=== PATIENT | male | born 1995 | race Two or more races ===

== ENCOUNTER 2024-10-04 21:02 | Emergency (ER) | payer MEDICAID, SELFPAY ==
[2024-10-04 21:21] VITALS: BP 132/80; PULSE 87; RESP 18; TEMP 36.6; O2SAT 99
[2024-10-04] MEDS: ONDANSETRON INJ 2 MG/ML INJ 2 ML 4 MG IM (21:45)
--- NOTE | 2024-10-04 21:48 | PD.EDNV ---
Nausea/Vomit./Diarrhea-RME/HPI General Chief complaint: Nausea/Vomiting/Diarrhea Stated complaint: N/V AFTER ACCENDENTAL EATING RAW CHICKEN TODAY Time Seen by Provider: 10/04/24 21:42 Arrival date/time: 10/04/24 21:02 29M with history of HTN and alcohol abuse presents to ED with non-bloody N/V after accidentally eating some raw chicken. Patient hasn't had diarrhea (yet). Limitations: no limitations Related Data Previous Rx's ?Medication ?Instructions ?Recorded sucralfate 100 mg/mL oral 10 ml PO BID #200 mL 01/16/23 suspension chlordiazepoxide HCl 25 mg capsule 25 mg PO BID PRN alcohol 10/02/23 withdrawal #14 caps ondansetron 4 mg disintegrating 4 mg PO Q8H PRN nausea and 10/02/23 tablet vomiting #30 tabs pantoprazole 40 mg tablet,delayed 40 mg PO QDAY #30 tabs 10/02/23 release ibuprofen 600 mg tablet 600 mg PO Q6H #30 tabs 10/24/23 acetaminophen 500 mg capsule 1,000 mg (2 x 500 mg) PO Q6H PRN 05/09/24 fever or pain #30 caps ibuprofen 800 mg tablet 800 mg PO TID PRN pain #30 tabs 05/09/24 lorazepam 1 mg tablet (Ativan) 1 mg PO BID PRN anxiety #20 tabs 05/09/24 pantoprazole 40 mg tablet,delayed 40 mg PO QDAY #14 tabs 07/12/24 release (Protonix) dextromethorphan-guaifenesin ER 60 1 tab PO Q12H PRN congestion/cough 08/19/24 mg-1,200 mg tab,extend #20 tabs release,12hr (Mucinex DM) dicyclomine 20 mg tablet 20 mg PO Q6HR PRN abdominal pain 08/19/24 #30 tabs fluticasone propionate 50 2 spray intranasal QDAY #16 grams 08/19/24 mcg/actuation nasal spray,suspension (Flonase Allergy Relief) ibuprofen 600 mg tablet 600 mg PO Q6H PRN pain #30 tabs 08/19/24 lactulose 20 gram/30 mL oral 20 g (30 mL) PO BID PRN 08/19/24 solution constipation #1,200 mL ondansetron 4 mg disintegrating 4 mg PO Q8H PRN nausea and 10/04/24 tablet vomiting #30 tabs Allergies Allergy/AdvReac Type Severity Reaction Status Date / Time No Known Allergies Allergy Verified 10/04/24 21:05 Review of Systems Review of Systems Systems Reviewed: All systems reviewed, normal except as documented Constitutional Constitutional: Reports system reviewed and no additional complaints, except as documented, Denies fever(s) and Denies headache(s) ENT Ears, Nose, Mouth, and Throat: Denies disequilibrium and Denies headache(s) Cardiovascular Cardiovascular: Reports system reviewed and no additional complaints, except as documented, Denies chest pain and Denies dyspnea Respiratory Respiratory: Reports system reviewed and no additional complaints, except as documented, Denies cough and Denies dyspnea Gastrointestinal Gastrointestinal: Reports system reviewed and no additional complaints, except as documented, Reports as per HPI, Denies abdominal pain, Reports nausea and Reports vomiting Neurologic Neurologic: Reports system reviewed and no additional complaints, except as documented, Denies confusion, Denies disequilibrium and Denies headache(s) Psychiatric Psychiatric: Denies confusion Past Medical History Past Medical History CARDIAC: Positive Hypertension; Negative Cardiac Disorders or Congestive Heart Failure RESPIRATORY: Negative Chronic Obstructive Pulmonary Disease (COPD) or Asthma GASTROINTESTINAL: Positive Gastrointestinal Disorders, Cirrhosis and Esophageal Varices GENITOURINARY: Negative Renal Disease ENDOCRINE: Negative Diabetes Mellitus Type 1 or Diabetes Mellitus Type 2 HEMATOLOGIC: Negative Sickle Cell Disease Social History SMOKING STATUS: Current some day smoker SUBSTANCE USE: methamphetamine ED Exam General Limitations: Present no limitations General appearance: Present alert and in no apparent distress Head Head exam: Present atraumatic Eye Eye exam: Present normal appearance, PERRL and EOMI ENT ENT exam: Present normal exam, normal oropharynx and mucous membranes moist Neck Neck exam: Present normal inspection, full ROM and trachea midline Chest Chest inspection: Present normal inspection and symmetric chest wall rise Respiratory Respiratory exam: Present normal lung sounds bilaterally Cardiovascular Cardiovascular exam: Present regular rate, normal rhythm and normal heart sounds Abdominal Exam Abdominal exam: Present soft and normal bowel sounds Extremities Exam Extremities exam: Present normal inspection and full ROM Back Exam Back exam: Present normal inspection and full ROM Neurological Exam Neurological exam: Present alert, oriented X3 and CN II-XII intact Psychiatric Psychiatric exam: Present normal affect and normal mood Skin Skin exam: Present warm, dry, intact and normal color Course Quality Measures none Orders Category Date Time Status Ondansetron Inj [Zofran Inj] Med 12/06/24 21:42 Discontinued 4 mg IM X1 ONE Vital Signs Vital signs: Vital Signs Temperature 98 F 10/04/24 21:21 Pulse Rate 87 10/04/24 21:21 Respiratory Rate 18 10/04/24 21:21 Blood Pressure 132/80 H 10/04/24 21:21 Pulse Oximetry (%) 99 10/04/24 21:21 Oxygen Delivery Method Room Air 10/04/24 21:21 O2 at 99% on RA and WNLs Nausea/Vomiting/Diarrhea MDM Narrative MDM Narrative:: 29M with history of HTN and alcohol abuse presents to ED with non-bloody N/V after accidentally eating some raw chicken. Patient hasn't had diarrhea (yet). Physical exam reveals no ab tenderness. Patient is afebrile, calm, and alert. Likely food poisoning. PO challenge passed. Patient data External records reviewed:: [facility] previous records Clinical information provided by:: patient Social determinants that could affect healthcare access:: alcohol use Patient has the following chronic illnesses:: alcohol use and HTN How is presenting disease/condition affected by chronic disease/condition?: exacerbated by Evaluation data The following diagnostics were reviewed and interpreted by me:: other (specify) (none) Lab and/or radiology exams considered but not ordered:: not ordered Interpretation Summary: n/a Medications / Prescriptions Medications / Prescriptions considered but not ordered:: ordered Medication administrations:: Medication Administration History Discontinued Medications Ondansetron HCl (Ondansetron Inj 2 Mg/Ml Inj 2 Ml) 4 mg IM X1 ONE; Protocol Stop: 10/04/24 21:43 Last Admin: 10/04/24 21:45 Dose: 4 mg Documented By: KG above Consultations Consultation(s) initiated? (list below): No Diagnosis Nausea Differential Diagnosis: traveler's diarrhea, food poisoning, gastroenteritis, clostridium difficile infection, drug-induced nausea and vomiting and dehydration Most likely diagnosis given after review of the tests above:: food poisoning Admission Indicated Admission indicated?: not indicated Admission Request Was there a request for admission?: No Disposition Plan Disposition Plan: Discharge Discharge Attestation Discharge Attestation: The patient and all family members were given an opportunity to ask questions and understood the discharge instructions. Discharge instructions specifically effects, indications for sooner follow up or return to the emergency department, and the expected course of current diagnosis. Patient condition: Stable Discharge Plan Plan Patient Disposition: HOME (Self Care) Disposition Comment: Stable Prescriptions/Referrals Prescriptions/Med Rec: New ondansetron 4 mg tablet,disintegrating 4 mg PO Q8H PRN (Reason: nausea and vomiting) Qty: 30 0RF No Action sucralfate 100 mg/mL suspension 10 ml PO BID Qty: 200 0RF acetaminophen 500 mg capsule 1,000 mg PO Q6H PRN (Reason: fever or pain) Qty: 30 0RF ibuprofen 800 mg tablet 800 mg PO TID PRN (Reason: pain) Qty: 30 0RF lorazepam [Ativan] 1 mg tablet 1 mg PO BID PRN (Reason: anxiety) Qty: 20 0RF chlordiazepoxide HCl 25 mg capsule 25 mg PO BID PRN (Reason: alcohol withdrawal) Qty: 14 0RF pantoprazole 40 mg tablet,delayed release (DR/EC) 40 mg PO QDAY Qty: 30 0RF ondansetron 4 mg tablet,disintegrating 4 mg PO Q8H PRN (Reason: nausea and vomiting) Qty: 30 0RF ibuprofen 600 mg tablet 600 mg PO Q6H Qty: 30 0RF pantoprazole [Protonix] 40 mg tablet,delayed release (DR/EC) 40 mg PO QDAY Qty: 14 0RF lactulose 20 gram/30 mL solution 20 g PO BID PRN (Reason: constipation) Qty: 1200 0RF dicyclomine 20 mg tablet 20 mg PO Q6HR PRN (Reason: abdominal pain) Qty: 30 0RF dextromethorphan-guaifenesin [Mucinex DM] 60-1,200 mg tablet extended release 12 hr 1 tab PO Q12H PRN (Reason: congestion/cough) Qty: 20 0RF fluticasone propionate [Flonase Allergy Relief] 50 mcg/actuation spray,suspension 2 spray intranasal QDAY Qty: 16 0RF Rx Instructions: administer into each nostril ibuprofen 600 mg tablet 600 mg PO Q6H PRN (Reason: pain) Qty: 30 0RF Referrals: Kash Ferris MD [Primary Care Provider] - In 1 week Problem List Clinical Impression: Food poisoning Patient/Caregiver Discharge Instructions Education Materials: ED Food Poisoning (Adult) Additional Instructions: Please follow-up with PCP within 24-48 hours and return immediately if symptoms worsen. Stay hydrated. Print Language: Portuguese Stand Alone Forms: Patient Portal Info Letter PA/DIRECTOR OF PUPIL PERSONNEL PROGRAM Supervising Physician PA/DIRECTOR OF PUPIL PERSONNEL PROGRAM Supervising Physician: Dr. Preston
[2024-10-04 22:53] VITALS: BP 128/74; PULSE 71; RESP 18; O2SAT 98
== END 2024-10-04 22:53 | disposition home or self-care (01) ==
PROVIDERS: Emergency Provider Emergency Medicine; PCP Family Medicine
DX: A05.9 Bacterial foodborne intoxication, unspecified (principal); I10 Essential (primary) hypertension
CPT/HCPCS: 96372; 99283; J2405

== ENCOUNTER 2024-11-01 16:02 | Emergency (ER) | payer MEDICAID, SELFPAY ==
[2024-11-01 16:14] VITALS: BP 122/79; PULSE 95; RESP 19; TEMP 36.7; O2SAT 99; BMI 28.5
--- NOTE | 2024-11-01 16:20 | XR_ITS ---
Examination: CT abdomen and pelvis without contrast. Coronal 3-D reconstructions. Sagittal 2-D reconstructions. Date and time of exam:November 01, 2024 1657 hrs. Comparison: 07/12/2024 Indications: Left lower abdominal pain onset today CTDI: vol (mGy): 6.99 DLP: (mGycm): 437 Technique: Axial images of the abdomen have been obtained, 3 mm slice thickness Intravenous contrast material has not been administered. Low dose protocols were performed. One or more of the following dose reduction techniques were used; automated exposure control, adjustment of the mA and/or KV according to patient size, use of iterative reconstruction technique. Findings: No focal liver or splenic lesions No gallstones No pancreatic or adrenal mass Mild bilateral renal parenchymal scar formation No renal or ureteral calculi, no hydronephrosis Normal appendix No bowel obstruction No diverticulitis Contracted urinary bladder No prostatomegaly Impression: No renal or ureteral calculi, no hydronephrosis Normal appendix No bowel obstruction diverticulitis or free air
--- NOTE | 2024-11-01 16:20 | PD.EDRME ---
Rapid Medical Screening Exam E Arrival date/time: 11/01/24 16:02 29-year-old male with a history of cirrhosis presents to the emergency room with a chief complaint of left lower quadrant abdominal pain and tenderness. Patient states he was doing sit ups and working out when he heard a pop and began to have severe left lower quadrant abdominal pain. Chief Complaint: Abdominal Pain Vital signs: Vital Signs Temperature 98.0 F 11/01/24 16:14 Pulse Rate 95 11/01/24 16:14 Respiratory Rate 19 11/01/24 16:14 Blood Pressure 122/79 11/01/24 16:14 Pulse Oximetry (%) 99 11/01/24 16:14 Oxygen Delivery Method Room Air 11/01/24 16:14 Vital signs reviewed by provider: Yes
[2024-11-01 16:55] LABS: Collection Type, Urine Clean Catch; Squamous Epithelial Cell,Urine 0 /hpf (0-5)
[2024-11-01 17:06] LABS: Basophils # (Auto) 0.1 Thou/mm3 (0.0-0.2); Basophils % (Auto) 1 % (0-2.5); Eosinophils # (Auto) 0.3 Thou/mm3 (0.0-0.5); Eosinophils % (Auto) 4 % (0-10); Hematocrit 42.5 % (41.0-53.0); Hemoglobin 15.3 g/dL (13.5-16.0); Immature Granulocytes % (Auto) 0 % (0-0); Immature Granulocytes Auto 0.02 Thou/mm3 (0.00-0.00); Lymphocytes # (Auto) 2.8 Thou/mm3 (1.0-4.8); Lymphocytes % (Auto) 39 % (10-50); Mean Corpuscular Hemoglobin 31.1 pg (25.0-35.0); Mean Corpuscular Volume 86 fL (80-100); Monocytes # (Auto) 0.6 Thou/mm3 (0.0-0.8); Monocytes % (Auto) 8 % (0-12); Neutrophils # (Auto) 3.4 Thou/mm3 (1.8-7.7); Neutrophils % (Auto) 48 % (37-80); Nucleated Red Blood Cell % 0 /100 WBC (0); Platelet Count 313 Thou/mm3 (140-440); RDW Standard Deviation 36.1 fL (35.1-43.9); Red Blood Count 4.92 Miln/mm3 (4.50-5.90); White Blood Count 7.1 Thou/mm3 (3.8-10.6)
[2024-11-01 17:12] LABS: Bacteria,Urine Rare; Bilirubin,Urine Negative (Negative); Blood,Urine Negative (Negative); Clarity,Urine Clear (Clear/Hazy); Color,Urine Yellow (Lt Yel-Yel); Glucose, Urine Negative (Negative); Ketones,Urine 1+ (Negative); Leukocyte Esterase,Urine Negative (Negative); Nitrite,Urine Negative (Negative); PH,Urine 5.5 (5.0-7.0); Protein,Urine Trace (Neg - Trace); RBC,Urine 2 /hpf (0-3); Specific Gravity,Urine 1.033 (1.001-1.035); Urobilinogen,Urine Negative mg/dL (0.0-1.0); WBC,Urine < 1 /hpf (0-5)
[2024-11-01 17:13] LABS: Alanine Aminotransferase 28 U/L (10-49); Alkaline Phosphatase 51 U/L (46-116); Anion Gap 8 (7-16); Aspartate Amino Transferase 30 U/L (0-34); BUN/Creatinine Ratio 13 Ratio (12-20); Bilirubin,Total 0.6 mg/dL (0.3-1.2); Blood Urea Nitrogen 14 mg/dL (9-23); Calcium 10.5 mg/dL (8.3-10.6); Calcium (Corrected) 10.5 mg/dL (8.5-10.1); Carbon Dioxide 27.4 mMol/L (20.0-31.0); Chloride 102 mMol/L (98-107); Creatinine (Component) 1.1 mg/dL (0.6-1.3); Estimated Creatinine Clearance 104.4 mL/min (>60); Globulin 2.5 gm/dL (2.3-3.5); Glucose 90 mg/dL (74-106); Lipase 52 U/L (12-53); Osmolality,Calculated 274 (275-295); Potassium 4.6 mMol/L (3.4-5.1); Sodium 137 mMol/L (136-145); Total Protein 7.5 gm/dL (5.7-8.2); eGFR > 60 See Note
--- NOTE | 2024-11-01 17:23 | EDNOTE_ITS ---
<Statement entered by Nerissa Jensen MD - 11/07/24 16:21> As co-signing physician, I was present and available for consult prn. I concur with the plan and care as documented by the midlevel provider. ED Abdominal Pain RME/HPI General Chief Complaint: Abdominal Pain Stated complaint: ABDOMINAL PAIN I GAVE MYSELF A HERNIA Time seen by provider: 11/01/24 17:22 Arrival date/time: 11/01/24 16:02 29-year-old male with a history of cirrhosis presents to the emergency room with a chief complaint of left lower quadrant abdominal pain and tenderness. Patient states he was doing sit ups and working out when he heard a pop and began to have severe left lower quadrant abdominal pain. Limitations: no limitations RME / HPI RME / HPI narrative: 11/01/24 16:02 29-year-old male with a history of cirrhosis presents to the emergency room with a chief complaint of left lower quadrant abdominal pain and tenderness. Patient states he was doing sit ups and working out when he heard a pop and began to have severe left lower quadrant abdominal pain. Related Data Previous Rx's ?Medication ?Instructions ?Recorded sucralfate 100 mg/mL oral 10 ml PO BID #200 mL 01/16/23 suspension chlordiazepoxide HCl 25 mg capsule 25 mg PO BID PRN alcohol 10/02/23 withdrawal #14 caps ondansetron 4 mg disintegrating 4 mg PO Q8H PRN nausea and 10/02/23 tablet vomiting #30 tabs pantoprazole 40 mg tablet,delayed 40 mg PO QDAY #30 tabs 10/02/23 release ibuprofen 600 mg tablet 600 mg PO Q6H #30 tabs 10/24/23 acetaminophen 500 mg capsule 1,000 mg (2 x 500 mg) PO Q6H PRN 05/09/24 fever or pain #30 caps ibuprofen 800 mg tablet 800 mg PO TID PRN pain #30 tabs 05/09/24 lorazepam 1 mg tablet (Ativan) 1 mg PO BID PRN anxiety #20 tabs 05/09/24 pantoprazole 40 mg tablet,delayed 40 mg PO QDAY #14 tabs 07/12/24 release (Protonix) dextromethorphan-guaifenesin ER 60 1 tab PO Q12H PRN congestion/cough 08/19/24 mg-1,200 mg tab,extend #20 tabs release,12hr (Mucinex DM) dicyclomine 20 mg tablet 20 mg PO Q6HR PRN abdominal pain 08/19/24 #30 tabs fluticasone propionate 50 2 spray intranasal QDAY #16 grams 08/19/24 mcg/actuation nasal spray,suspension (Flonase Allergy Relief) ibuprofen 600 mg tablet 600 mg PO Q6H PRN pain #30 tabs 08/19/24 lactulose 20 gram/30 mL oral 20 g (30 mL) PO BID PRN 08/19/24 solution constipation #1,200 mL ondansetron 4 mg disintegrating 4 mg PO Q8H PRN nausea and 10/04/24 tablet vomiting #30 tabs Allergies Allergy/AdvReac Type Severity Reaction Status Date / Time No Known Allergies Allergy Verified 11/01/24 16:08 Review of Systems Review of Systems Systems Reviewed: All systems reviewed, normal except as documented Constitutional Constitutional: Reports system reviewed and no additional complaints, except as documented, Denies fatigue, Denies fever(s), Denies headache(s) and Denies weakness Eyes Eyes: Reports system reviewed and no additional complaints, except as documented, Denies blurry vision and Denies change in vision ENT Ears, Nose, Mouth, and Throat: Reports system reviewed and no additional complaints, except as documented, Denies otalgia, Denies headache(s), Denies nasal congestion, Denies throat swelling and Denies vertigo Cardiovascular Cardiovascular: Reports system reviewed and no additional complaints, except as documented, Denies chest pain, Denies dyspnea and Denies dyspnea on exertion Respiratory Respiratory: Reports system reviewed and no additional complaints, except as documented, Denies chest congestion, Denies cough, Denies dyspnea, Denies dyspnea on exertion and Denies wheezing Gastrointestinal Gastrointestinal: Reports system reviewed and no additional complaints, except as documented, Reports abdominal pain, Reports bloating, Reports cramping, Reports dyspepsia, Denies nausea and Denies vomiting Genitourinary Genitourinary: Reports system reviewed and no additional complaints, except as documented, Denies dysuria and Denies hematuria Musculoskeletal Musculoskeletal: Reports system reviewed and no additional complaints, except as documented and Denies back pain Integumentary/Breasts Skin/Breast: Reports system reviewed and no additional complaints, except as documented and Denies wounds Neurologic Neurologic: Reports system reviewed and no additional complaints, except as documented, Denies confusion, Denies headache(s), Denies lack of coordination, Denies vertigo and Denies weakness Psychiatric Psychiatric: Reports system reviewed and no additional complaints, except as documented, Denies anxiety, Denies confusion, Denies depression, Denies paranoia, Denies suicidal ideation and Denies tactile hallucinations Endocrine Endocrine: Reports system reviewed and no additional complaints, except as documented and Denies fatigue Hematologic/Lymphatic Hematologic/Lymphatic: Reports system reviewed and no additional complaints, except as documented and Denies lymphadenopathy Allergic/Immunologic Allergic/Immunologic: Reports system reviewed and no additional complaints, except as documented, Denies throat swelling, Denies urticaria and Denies wheezing Past Medical History Past Medical History CARDIAC: Positive Hypertension; Negative Cardiac Disorders or Congestive Heart Failure RESPIRATORY: Negative Chronic Obstructive Pulmonary Disease (COPD) or Asthma GASTROINTESTINAL: Positive Gastrointestinal Disorders, Cirrhosis and Esophageal Varices GENITOURINARY: Negative Renal Disease ENDOCRINE: Negative Diabetes Mellitus Type 1 or Diabetes Mellitus Type 2 HEMATOLOGIC: Negative Sickle Cell Disease Social History SMOKING STATUS: Current some day smoker SUBSTANCE USE: methamphetamine ED Exam General Limitations: Present no limitations General appearance: Present alert and in no apparent distress Head Head exam: Present atraumatic Eye Eye exam: Present normal appearance, PERRL and EOMI ENT ENT exam: Present normal exam, normal oropharynx and mucous membranes moist Neck Neck exam: Present normal inspection, full ROM and trachea midline Chest Chest inspection: Present normal inspection and symmetric chest wall rise Respiratory Respiratory exam: Present normal lung sounds bilaterally Cardiovascular Cardiovascular exam: Present regular rate, normal rhythm and normal heart sounds Abdominal Exam Abdominal exam: Present soft, tenderness, guarding and normal bowel sounds; Absent distention, rebound, rigidity, Valenzuela's sign, Rovsing's sign or tenderness at McBurney's Point Abdominal tenderness: Present LLQ and moderate Extremities Exam Extremities exam: Present normal inspection and full ROM Back Exam Back exam: Present normal inspection and full ROM Neurological Exam Neurological exam: Present alert, oriented X3 and CN II-XII intact Psychiatric Psychiatric exam: Present normal affect and normal mood Skin Skin exam: Present warm, dry, intact and normal color Course Quality Measures none Orders Category Date Time Status CT abdomen pelvis wo con Stat Exams 11/01/24 16:20 Completed CBC Stat Lab 11/01/24 16:33 Completed CMP [Comprehensive Metabolic Panel] Stat Lab 11/01/24 16:33 Completed Lipase Stat Lab 11/01/24 16:33 Completed UA [Urinalysis] Stat Lab 11/01/24 16:30 Completed Urine Culture Stat Lab 11/01/24 16:30 Received Vital Signs Vital signs: Vital Signs Temperature 98.0 F 11/01/24 16:14 Pulse Rate 95 11/01/24 16:14 Respiratory Rate 19 11/01/24 16:14 Blood Pressure 122/79 11/01/24 16:14 Pulse Oximetry (%) 99 11/01/24 16:14 Oxygen Delivery Method Room Air 11/01/24 16:14 O2 saturation 99% within normal limits Abdominal Pain MDM MDM Narrative MDM Narrative:: 29-year-old male with a history of cirrhosis presents to the emergency room with a chief complaint of left lower quadrant abdominal pain and tenderness. Patient states he was doing sit ups and working out when he heard a pop and began to have severe left lower quadrant abdominal pain. Clinically the patient appears nontoxic and in no apparent distress. Physical examination shows left lower abdominal pain and tenderness. Patient states it is a 7 out of 10 in severity. Patient denies any nausea vomiting. Patient states he was working out when he began to have this pain and believes it is due to a hernia. CBC and CMP were negative for any leukocytosis or any abnormal findings. CT of the abdomen and pelvis was completed and was within normal limits. Patient was discharged and educated to follow-up with primary care provider return to the emergency room for any evidence of worsening signs or symptoms Patient data External records reviewed:: [facility] previous records Clinical information provided by:: patient Social determinants that could affect healthcare access:: none Patient has the following chronic illnesses:: No chronic illness How is presenting disease/condition affected by chronic disease/condition?: no chronic disease Evaluation data The following diagnostics were reviewed and interpreted by me:: lab results and radiology exam(s) Lab and/or radiology exams considered but not ordered:: Labs and radiology exams considered and ordered Interpretation Summary: CT abdomen and pelvis-Findings: No focal liver or splenic lesions No gallstones No pancreatic or adrenal mass Mild bilateral renal parenchymal scar formation No renal or ureteral calculi, no hydronephrosis Normal appendix No bowel obstruction No diverticulitis Contracted urinary bladder No prostatomegaly Impression: No renal or ureteral calculi, no hydronephrosis Normal appendix No bowel obstruction diverticulitis or free air Medications / Prescriptions Medications or Prescriptions considered but not ordered:: Medication not given Medication administrations:: Medication not given Consultations Consultation(s) initiated? (list below): No Diagnosis Differential diagnosis abdominal pain: abdominal pain, acute appendicitis, d iverticulitis and gastroenteritis Most likely diagnosis given after review of the tests above:: Abdominal pain Admission Indicated Admission indicated?: not indicated Admission Request Was there a request for admission?: No Disposition Plan Disposition Plan: Discharge Discharge Attestation Discharge Attestation: The patient and all family members were given an opportunity to ask questions and understood the discharge instructions. Discharge instructions specifically effects, indications for sooner follow up or return to the emergency department, and the expected course of current diagnosis. Patient condition: Stable Discharge Plan Plan Patient Disposition: HOME (Self Care) Disposition Comment: Stable Prescriptions/Referrals Prescriptions/Med Rec: No Action sucralfate 100 mg/mL suspension 10 ml PO BID Qty: 200 0RF acetaminophen 500 mg capsule 1,000 mg PO Q6H PRN (Reason: fever or pain) Qty: 30 0RF ibuprofen 800 mg tablet 800 mg PO TID PRN (Reason: pain) Qty: 30 0RF lorazepam [Ativan] 1 mg tablet 1 mg PO BID PRN (Reason: anxiety) Qty: 20 0RF chlordiazepoxide HCl 25 mg capsule 25 mg PO BID PRN (Reason: alcohol withdrawal) Qty: 14 0RF pantoprazole 40 mg tablet,delayed release (DR/EC) 40 mg PO QDAY Qty: 30 0RF ondansetron 4 mg tablet,disintegrating 4 mg PO Q8H PRN (Reason: nausea and vomiting) Qty: 30 0RF ibuprofen 600 mg tablet 600 mg PO Q6H Qty: 30 0RF pantoprazole [Protonix] 40 mg tablet,delayed release (DR/EC) 40 mg PO QDAY Qty: 14 0RF lactulose 20 gram/30 mL solution 20 g PO BID PRN (Reason: constipation) Qty: 1200 0RF dicyclomine 20 mg tablet 20 mg PO Q6HR PRN (Reason: abdominal pain) Qty: 30 0RF dextromethorphan-guaifenesin [Mucinex DM] 60-1,200 mg tablet extended release 12 hr 1 tab PO Q12H PRN (Reason: congestion/cough) Qty: 20 0RF fluticasone propionate [Flonase Allergy Relief] 50 mcg/actuation spray,suspension 2 spray intranasal QDAY Qty: 16 0RF Rx Instructions: administer into each nostril ibuprofen 600 mg tablet 600 mg PO Q6H PRN (Reason: pain) Qty: 30 0RF ondansetron 4 mg tablet,disintegrating 4 mg PO Q8H PRN (Reason: nausea and vomiting) Qty: 30 0RF Referrals: Kash Ferris MD [Primary Care Provider] - In 1 week Problem List Clinical Impression: Abdominal pain Patient/Caregiver Discharge Instructions Education Materials: Abdominal Pain Additional Instructions: Please follow-up with your primary care provider in the next [address] of your abdomen and pelvis was completed and was negative for any acute findings. For any evidence of worsening signs or symptoms please return to the emergency room immediately Print Language: Faroese Stand Alone Forms: Anh Award Info., Patient Portal Info Letter PA/PEDIATRICIAN ACTIVE PRACTICE Supervising Physician PA/PEDIATRICIAN ACTIVE PRACTICE Supervising Physician: Dr. JENSEN
== END 2024-11-01 17:41 | disposition home or self-care (01) ==
PROVIDERS: Nurse Practitioner Family; Emergency Provider Emergency Medicine; PCP Family Medicine
DX: R10.32 Left lower quadrant pain (principal)
CPT/HCPCS: 36415; 74176; 80053; 81001; 83690; 85025; 87086; 99284

== ENCOUNTER 2024-12-04 00:36 | Emergency (ER) | payer MEDICAID, SELFPAY ==
[2024-12-04 00:37] VITALS: BMI 28.8
[2024-12-04 00:50] VITALS: BP 146/80; PULSE 76; RESP 18; TEMP 37; O2SAT 96
--- NOTE | 2024-12-04 01:03 | PD.EDRME ---
Rapid Medical Screening Exam RME Arrival date/time: 12/04/24 00:36 29-year-old male past medical history of liver disease presents emergency department complaining of diffuse abdominal pain for several days. Chief Complaint: Abdominal Pain Time Seen by Provider: 12/04/24 00:45 Vital signs: Vital Signs Temperature 98.6 F 12/04/24 00:50 Pulse Rate 76 12/04/24 00:50 Respiratory Rate 18 12/04/24 00:50 Blood Pressure 146/80 H 12/04/24 00:50 Pulse Oximetry (%) 96 12/04/24 00:50 Oxygen Delivery Method Room Air 12/04/24 00:50 Vital signs reviewed by provider: Yes
[2024-12-04] MEDS: MG HYD/AL HYD/SIME (Maalox Reg) SUSP 30 ML UDC PO (01:17)
[2024-12-04] MEDS: LIDOCAINE VISCOUS 2% 15 ML UDC PO (01:17)
[2024-12-04] MEDS: FAMOTIDINE 20 MG TABLET 40 MG PO (01:17)
--- NOTE | 2024-12-04 01:33 | PC.NURSE ---
Ambulated to RM #1 with c/o abd pain x 4 days. Pt also c/o being nauseated, no emesis. Urine requested.
[2024-12-04 01:57] VITALS: BP 124/66; PULSE 70; RESP 20; TEMP 36.8; O2SAT 97
[2024-12-04 01:57] LABS: Collection Type, Urine Clean Catch; Squamous Epithelial Cell,Urine 0 /hpf (0-5)
[2024-12-04 02:02] LABS: Basophils # (Auto) 0.1 Thou/mm3 (0.0-0.2); Basophils % (Auto) 1 % (0-2.5); Eosinophils # (Auto) 0.3 Thou/mm3 (0.0-0.5); Eosinophils % (Auto) 4 % (0-10); Hematocrit 37.8 % (41.0-53.0); Hemoglobin 13.7 g/dL (13.5-16.0); Immature Granulocytes % (Auto) 0 % (0-0); Immature Granulocytes Auto 0.01 Thou/mm3 (0.00-0.00); Lymphocytes # (Auto) 3.7 Thou/mm3 (1.0-4.8); Lymphocytes % (Auto) 49 % (10-50); Mean Corpuscular HGB Conc 36.2 g/dl (31.0-37.0); Mean Corpuscular Hemoglobin 31.1 pg (25.0-35.0); Mean Corpuscular Volume 86 fL (80-100); Monocytes # (Auto) 0.6 Thou/mm3 (0.0-0.8); Monocytes % (Auto) 8 % (0-12); Neutrophils % (Auto) 39 % (37-80); Nucleated Red Blood Cell % 0 /100 WBC (0); Platelet Count 258 Thou/mm3 (140-440); RDW Standard Deviation 35.8 fL (35.1-43.9); Red Blood Count 4.41 Miln/mm3 (4.50-5.90); White Blood Count 7.7 Thou/mm3 (3.8-10.6)
[2024-12-04 02:11] LABS: Bacteria,Urine Rare; Bilirubin,Urine Negative (Negative); Blood,Urine Negative (Negative); Clarity,Urine Clear (Clear/Hazy); Color,Urine Lt-Yellow (Lt Yel-Yel); Culture Indicated,Urine Not Indicated; Glucose, Urine Negative (Negative); Ketones,Urine Negative (Negative); Leukocyte Esterase,Urine Negative (Negative); Nitrite,Urine Negative (Negative); Protein,Urine Negative (Neg - Trace); RBC,Urine 3 /hpf (0-3); Specific Gravity,Urine 1.032 (1.001-1.035); Urobilinogen,Urine Negative mg/dL (0.0-1.0); WBC,Urine 1 /hpf (0-5)
[2024-12-04 02:21] LABS: Alanine Aminotransferase 37 U/L (10-49); Albumin, Serum 4.5 gm/dL (3.5-5.0); Albumin/Globulin Ratio 1.9 (1.2-2.2); Alkaline Phosphatase 45 U/L (46-116); Anion Gap 7 (7-16); Aspartate Amino Transferase 31 U/L (0-34); BUN/Creatinine Ratio 20 Ratio (12-20); Bilirubin,Total 0.4 mg/dL (0.3-1.2); Blood Urea Nitrogen 16 mg/dL (9-23); Carbon Dioxide 26.3 mMol/L (20.0-31.0); Chloride 108 mMol/L (98-107); Creatinine (Component) 0.8 mg/dL (0.6-1.3); Estimated Creatinine Clearance 139.5 mL/min (>60); Globulin 2.4 gm/dL (2.3-3.5); Glucose 96 mg/dL (74-106); Lipase 49 U/L (12-53); Osmolality,Calculated 282 (275-295); Potassium 3.8 mMol/L (3.4-5.1); Sodium 141 mMol/L (136-145); Total Protein 6.9 gm/dL (5.7-8.2); eGFR > 60 See Note
--- NOTE | 2024-12-04 02:27 | PD.EDABDPN ---
ED Abdominal Pain RME/HPI General Chief Complaint: Abdominal Pain Stated complaint: ABD PAIN X 4DAYS HX CIRRHOSIS Time seen by provider: 12/04/24 00:45 Arrival date/time: 12/04/24 00:36 29-year-old male past medical history of liver disease presents emergency department complaining of diffuse abdominal pain for several days. Patient denies any fever, chills, vomiting, diarrhea, dysuria, flank pain, or any other associated symptom. Source: patient Mode of arrival: ambulatory Limitations: no limitations RME / HPI RME / HPI narrative: 12/04/24 00:36 29-year-old male past medical history of liver disease presents emergency department complaining of diffuse abdominal pain for several days. Related Data Previous Rx's ?Medication ?Instructions ?Recorded sucralfate 100 mg/mL oral 10 ml PO BID #200 mL 01/16/23 suspension chlordiazepoxide HCl 25 mg capsule 25 mg PO BID PRN alcohol 10/02/23 withdrawal #14 caps ondansetron 4 mg disintegrating 4 mg PO Q8H PRN nausea and 10/02/23 tablet vomiting #30 tabs pantoprazole 40 mg tablet,delayed 40 mg PO QDAY #30 tabs 10/02/23 release ibuprofen 600 mg tablet 600 mg PO Q6H #30 tabs 10/24/23 acetaminophen 500 mg capsule 1,000 mg (2 x 500 mg) PO Q6H PRN 05/09/24 fever or pain #30 caps ibuprofen 800 mg tablet 800 mg PO TID PRN pain #30 tabs 05/09/24 lorazepam 1 mg tablet (Ativan) 1 mg PO BID PRN anxiety #20 tabs 05/09/24 pantoprazole 40 mg tablet,delayed 40 mg PO QDAY #14 tabs 07/12/24 release (Protonix) dextromethorphan-guaifenesin ER 60 1 tab PO Q12H PRN congestion/cough 08/19/24 mg-1,200 mg tab,extend #20 tabs release,12hr (Mucinex DM) dicyclomine 20 mg tablet 20 mg PO Q6HR PRN abdominal pain 08/19/24 #30 tabs fluticasone propionate 50 2 spray intranasal QDAY #16 grams 08/19/24 mcg/actuation nasal spray,suspension (Flonase Allergy Relief) ibuprofen 600 mg tablet 600 mg PO Q6H PRN pain #30 tabs 08/19/24 lactulose 20 gram/30 mL oral 20 g (30 mL) PO BID PRN 08/19/24 solution constipation #1,200 mL ondansetron 4 mg disintegrating 4 mg PO Q8H PRN nausea and 10/04/24 tablet vomiting #30 tabs acetaminophen 500 mg capsule 500 mg PO Q6H PRN pain #30 caps 12/04/24 Allergies Allergy/AdvReac Type Severity Reaction Status Date / Time grass pollen Allergy Redness of Verified 12/04/24 00:40 Skin SEEDS Allergy Mild Abdominal Uncoded 12/04/24 00:40 Pain Review of Systems Review of Systems Systems Reviewed: All systems reviewed, normal except as documented Constitutional Constitutional: Reports system reviewed and no additional complaints, except as documented, Denies body ache(s), Denies chills and Denies fever(s) Eyes Eyes: Reports system reviewed and no additional complaints, except as documented and Denies change in vision ENT Ears, Nose, Mouth, and Throat: Reports system reviewed and no additional complaints, except as documented, Denies disequilibrium, Denies dizziness, Denies sore throat and Denies vertigo Cardiovascular Cardiovascular: Reports system reviewed and no additional complaints, except as documented, Denies chest pain and Denies dyspnea Respiratory Respiratory: Reports system reviewed and no additional complaints, except as documented, Denies chest congestion, Denies cough and Denies dyspnea Gastrointestinal Gastrointestinal: Reports system reviewed and no additional complaints, except as documented, Reports abdominal pain, Denies nausea and Denies vomiting Musculoskeletal Musculoskeletal: Reports system reviewed and no additional complaints, except as documented, Denies abnormal gait and Denies arthralgias Integumentary/Breasts Skin/Breast: Reports system reviewed and no additional complaints, except as documented, Denies erythema, Denies rash and Denies wounds Neurologic Neurologic: Reports system reviewed and no additional complaints, except as documented, Denies abnormal gait, Denies disequilibrium, Denies dizziness and Denies vertigo Past Medical History Past Medical History CARDIAC: Positive Hypertension; Negative Cardiac Disorders or Congestive Heart Failure RESPIRATORY: Negative Chronic Obstructive Pulmonary Disease (COPD) or Asthma GASTROINTESTINAL: Positive Gastrointestinal Disorders, Cirrhosis and Esophageal Varices GENITOURINARY: Negative Renal Disease ENDOCRINE: Negative Diabetes Mellitus Type 1 or Diabetes Mellitus Type 2 HEMATOLOGIC: Negative Sickle Cell Disease Social History SMOKING STATUS: Current some day smoker SUBSTANCE USE: methamphetamine ED Exam General Limitations: Present no limitations General appearance: Present alert and in no apparent distress Head Head exam: Present atraumatic Eye Eye exam: Present normal appearance, PERRL and EOMI ENT ENT exam: Present normal exam, normal oropharynx and mucous membranes moist Neck Neck exam: Present normal inspection, full ROM and trachea midline Chest Chest inspection: Present normal inspection and symmetric chest wall rise Respiratory Respiratory exam: Present normal lung sounds bilaterally Cardiovascular Cardiovascular exam: Present regular rate, normal rhythm and normal heart sounds Abdominal Exam Abdominal exam: Present soft and normal bowel sounds; Absent distention, tenderness, guarding, rebound, Valenzuela's sign or tenderness at McBurney's Point Extremities Exam Extremities exam: Present normal inspection and full ROM Back Exam Back exam: Present normal inspection and full ROM Neurological Exam Neurological exam: Present alert, oriented X3 and CN II-XII intact Psychiatric Psychiatric exam: Present normal affect and normal mood Skin Skin exam: Present warm, dry, intact and normal color Course Quality Measures none Orders Category Date Time Status CBC Stat Lab 12/04/24 01:40 Completed CMP [Comprehensive Metabolic Panel] Stat Lab 12/04/24 01:40 Completed Lipase Stat Lab 12/04/24 01:40 Completed Urinalysis, C/S if Indicated Stat Lab 12/04/24 01:40 Completed Famotidine [Pepcid] Med 12/04/24 01:02 Discontinued 40 mg PO X1 ONE Lidocaine 2% Viscous [Xylocaine 2% Viscous] Med 12/04/24 01:02 Discontinued 15 ml PO X1 ONE mg Hyd/Al Hyd/Elizabeth Susp [Maalox Susp] Med 12/04/24 01:02 Discontinued 30 ml PO X1 ONE Vital Signs Vital signs: Vital Signs Temperature 98.6 F 12/04/24 00:50 Pulse Rate 76 12/04/24 00:50 Respiratory Rate 18 12/04/24 00:50 Blood Pressure 146/80 H 12/04/24 00:50 Pulse Oximetry (%) 96 12/04/24 00:50 Oxygen Delivery Method Room Air 12/04/24 00:50 96% room air within normal limits Abdominal Pain MDM MDM Narrative MDM Narrative:: 29-year-old male past medical history of liver disease presents emergency department complaining of diffuse abdominal pain for several days. Patient denies any fever, chills, vomiting, diarrhea, dysuria, flank pain, or any other associated symptom. Abdomen is soft and nontender. CBC was unremarkable for any leukocytosis. CMP was unremarkable for any elevated LFTs or gross electro abnormalities. Urinalysis also unremarkable for any signs of infection. Patient given GI cocktail and reported significant improvement in symptoms. Patient reported has pending ultrasound scheduled outpatient instructed to follow-up with primary care provider and return to emergency department for any worsening symptoms or as needed. Patient data External records reviewed:: [facility] previous records Clinical information provided by:: patient Social determinants that could affect healthcare access:: none Patient has the following chronic illnesses:: See chart How is presenting disease/condition affected by chronic disease/condition?: no chronic disease Evaluation data The following diagnostics were reviewed and interpreted by me:: lab results Lab and/or radiology exams considered but not ordered:: Ordered Interpretation Summary: Interpreted by me Medications / Prescriptions Medications or Prescriptions considered but not ordered:: Ordered Medication administrations:: Medication Administration History Discontinued Medications Al Hydrox/Mg Hydrox/Simethicone (Mg Hyd/Al Hyd/Elizabeth (Maalox Reg) Susp 30 Ml Udc) 30 ml PO X1 ONE Stop: 12/04/24 01:03 Last Admin: 12/04/24 01:17 Dose: 30 ml Documented By: OA Famotidine (Famotidine 20 Mg Tablet) 40 mg PO X1 ONE Stop: 12/04/24 01:03 Last Admin: 12/04/24 01:17 Dose: 40 mg Documented By: OA Lidocaine HCl (Lidocaine Viscous 2% 15 Ml Udc) 15 ml PO X1 ONE Stop: 12/04/24 01:03 Last Admin: 12/04/24 01:17 Dose: 15 ml Documented By: OA Given Consultations Consultation(s) initiated? (list below): No Diagnosis Differential diagnosis abdominal pain: abdominal pain, acute appendicitis, calculus of kidney, constipation, diverticulitis, gastroenteritis, pancreatitis and small bowel obstruction Most likely diagnosis given after review of the tests above:: Abdominal pain Admission Indicated Admission indicated?: not indicated Admission Request Was there a request for admission?: No Disposition Plan Disposition Plan: Discharge Discharge Attestation Discharge Attestation: The patient and all family members were given an opportunity to ask questions and understood the discharge instructions. Discharge instructions specifically effects, indications for sooner follow up or return to the emergency department, and the expected course of current diagnosis. Patient condition: Stable Discharge Plan Plan Patient Disposition: HOME (Self Care) Disposition Comment: Stable Prescriptions/Referrals Prescriptions/Med Rec: New acetaminophen 500 mg capsule 500 mg PO Q6H PRN (Reason: pain) Qty: 30 0RF No Action sucralfate 100 mg/mL suspension 10 ml PO BID Qty: 200 0RF acetaminophen 500 mg capsule 1,000 mg PO Q6H PRN (Reason: fever or pain) Qty: 30 0RF ibuprofen 800 mg tablet 800 mg PO TID PRN (Reason: pain) Qty: 30 0RF lorazepam [Ativan] 1 mg tablet 1 mg PO BID PRN (Reason: anxiety) Qty: 20 0RF chlordiazepoxide HCl 25 mg capsule 25 mg PO BID PRN (Reason: alcohol withdrawal) Qty: 14 0RF pantoprazole 40 mg tablet,delayed release (DR/EC) 40 mg PO QDAY Qty: 30 0RF ondansetron 4 mg tablet,disintegrating 4 mg PO Q8H PRN (Reason: nausea and vomiting) Qty: 30 0RF ibuprofen 600 mg tablet 600 mg PO Q6H Qty: 30 0RF pantoprazole [Protonix] 40 mg tablet,delayed release (DR/EC) 40 mg PO QDAY Qty: 14 0RF lactulose 20 gram/30 mL solution 20 g PO BID PRN (Reason: constipation) Qty: 1200 0RF dicyclomine 20 mg tablet 20 mg PO Q6HR PRN (Reason: abdominal pain) Qty: 30 0RF dextromethorphan-guaifenesin [Mucinex DM] 60-1,200 mg tablet extended release 12 hr 1 tab PO Q12H PRN (Reason: congestion/cough) Qty: 20 0RF fluticasone propionate [Flonase Allergy Relief] 50 mcg/actuation spray,suspension 2 spray intranasal QDAY Qty: 16 0RF Rx Instructions: administer into each nostril ibuprofen 600 mg tablet 600 mg PO Q6H PRN (Reason: pain) Qty: 30 0RF ondansetron 4 mg tablet,disintegrating 4 mg PO Q8H PRN (Reason: nausea and vomiting) Qty: 30 0RF Problem List Clinical Impression: Abdominal pain Patient/Caregiver Discharge Instructions Discharge Activity: activity as tolerated Education Materials: Abdominal Pain Additional Instructions: Take Tylenol as needed for pain. Follow-up with primary care provider and request H. pylori testing or referral to GI specialist if symptoms persist. Return to emergency department for any worsening symptoms or as needed. Print Language: Mosotho Stand Alone Forms: Anh Award Info., Patient Portal Info Letter PA/FARM MANAGEMENT AGENT Supervising Physician PA/FARM MANAGEMENT AGENT Supervising Physician: Dr. Mcqueen
[2024-12-04 02:34] VITALS: BP 130/87; PULSE 70; RESP 20; TEMP 36.6; O2SAT 98
== END 2024-12-04 02:54 | disposition home or self-care (01) ==
LOC: SERX 02:50
PROVIDERS: Emergency Provider Emergency Medicine; PCP Family Medicine
DX: R10.9 Unspecified abdominal pain (principal); I10 Essential (primary) hypertension; K74.60 Unspecified cirrhosis of liver; F17.210 Nicotine dependence, cigarettes, uncomplicated
CPT/HCPCS: 36415; 80053; 81001; 83690; 85025; 99283; J3490; A9270

== ENCOUNTER 2024-12-07 01:03 | Emergency (ER) | payer MEDICAID, SELFPAY ==
[2024-12-07 01:04] VITALS: BMI 28.8
[2024-12-07 01:11] VITALS: BP 130/79; PULSE 79; RESP 18; TEMP 37; O2SAT 95
--- NOTE | 2024-12-07 02:25 | PD.EDABDPN ---
ED Abdominal Pain RME/HPI General Chief Complaint: Abdominal Pain Stated complaint: ABD PAIN Time seen by provider: 12/07/24 02:11 Arrival date/time: 12/07/24 01:03 29M with history of alcoholic liver disease presents to ED with several days of intermittent ab pain and N/V. Patient was here twice for this recently with unremarkable blood work and CT. Patient does not want any pain meds. Separately, patient wants HIV testing since he's supposed to get it every 3 months due to encounter with HIV+ partner. Patient states he hasn't drank since June of last year. Patient has Zofran from clinic, but hasn't taken any because he was nervous. Limitations: no limitations Related Data Previous Rx's ?Medication ?Instructions ?Recorded sucralfate 100 mg/mL oral 10 ml PO BID #200 mL 01/16/23 suspension chlordiazepoxide HCl 25 mg capsule 25 mg PO BID PRN alcohol 10/02/23 withdrawal #14 caps ondansetron 4 mg disintegrating 4 mg PO Q8H PRN nausea and 10/02/23 tablet vomiting #30 tabs pantoprazole 40 mg tablet,delayed 40 mg PO QDAY #30 tabs 10/02/23 release ibuprofen 600 mg tablet 600 mg PO Q6H #30 tabs 10/24/23 acetaminophen 500 mg capsule 1,000 mg (2 x 500 mg) PO Q6H PRN 05/09/24 fever or pain #30 caps ibuprofen 800 mg tablet 800 mg PO TID PRN pain #30 tabs 05/09/24 lorazepam 1 mg tablet (Ativan) 1 mg PO BID PRN anxiety #20 tabs 05/09/24 pantoprazole 40 mg tablet,delayed 40 mg PO QDAY #14 tabs 07/12/24 release (Protonix) dextromethorphan-guaifenesin ER 60 1 tab PO Q12H PRN congestion/cough 08/19/24 mg-1,200 mg tab,extend #20 tabs release,12hr (Mucinex DM) dicyclomine 20 mg tablet 20 mg PO Q6HR PRN abdominal pain 08/19/24 #30 tabs fluticasone propionate 50 2 spray intranasal QDAY #16 grams 08/19/24 mcg/actuation nasal spray,suspension (Flonase Allergy Relief) ibuprofen 600 mg tablet 600 mg PO Q6H PRN pain #30 tabs 08/19/24 lactulose 20 gram/30 mL oral 20 g (30 mL) PO BID PRN 08/19/24 solution constipation #1,200 mL ondansetron 4 mg disintegrating 4 mg PO Q8H PRN nausea and 10/04/24 tablet vomiting #30 tabs acetaminophen 500 mg capsule 500 mg PO Q6H PRN pain #30 caps 12/04/24 Allergies Allergy/AdvReac Type Severity Reaction Status Date / Time grass pollen Allergy Redness of Verified 12/04/24 00:40 Skin SEEDS Allergy Mild Abdominal Uncoded 12/04/24 00:40 Pain Review of Systems Review of Systems Systems Reviewed: All systems reviewed, normal except as documented Constitutional Constitutional: Reports system reviewed and no additional complaints, except as documented, Denies fever(s) and Denies headache(s) ENT Ears, Nose, Mouth, and Throat: Denies disequilibrium and Denies headache(s) Cardiovascular Cardiovascular: Reports system reviewed and no additional complaints, except as documented, Denies chest pain and Denies dyspnea Respiratory Respiratory: Reports system reviewed and no additional complaints, except as documented, Denies cough and Denies dyspnea Gastrointestinal Gastrointestinal: Reports system reviewed and no additional complaints, except as documented, Reports as per HPI, Reports abdominal pain, Reports nausea and Reports vomiting Neurologic Neurologic: Reports system reviewed and no additional complaints, except as documented, Denies confusion, Denies disequilibrium and Denies headache(s) Psychiatric Psychiatric: Denies confusion Past Medical History Past Medical History CARDIAC: Positive Hypertension; Negative Cardiac Disorders or Congestive Heart Failure RESPIRATORY: Negative Chronic Obstructive Pulmonary Disease (COPD) or Asthma GASTROINTESTINAL: Positive Gastrointestinal Disorders, Cirrhosis and Esophageal Varices GENITOURINARY: Negative Renal Disease ENDOCRINE: Negative Diabetes Mellitus Type 1 or Diabetes Mellitus Type 2 HEMATOLOGIC: Negative Sickle Cell Disease Social History SMOKING STATUS: Current some day smoker SUBSTANCE USE: methamphetamine ED Exam General Limitations: Present no limitations General appearance: Present alert and in no apparent distress Head Head exam: Present atraumatic Eye Eye exam: Present normal appearance, PERRL and EOMI ENT ENT exam: Present normal exam, normal oropharynx and mucous membranes moist Neck Neck exam: Present normal inspection, full ROM and trachea midline Chest Chest inspection: Present normal inspection and symmetric chest wall rise Respiratory Respiratory exam: Present normal lung sounds bilaterally Cardiovascular Cardiovascular exam: Present regular rate, normal rhythm and normal heart sounds Abdominal Exam Abdominal exam: Present soft and normal bowel sounds Extremities Exam Extremities exam: Present normal inspection and full ROM Back Exam Back exam: Present normal inspection and full ROM Neurological Exam Neurological exam: Present alert, oriented X3 and CN II-XII intact Psychiatric Psychiatric exam: Present normal affect and normal mood Skin Skin exam: Present warm, dry, intact and normal color Course Quality Measures none Orders Category Date Time Status Alcohol, Blood Medical Stat Lab 12/07/24 02:30 Completed Ammonia Stat Lab 12/07/24 02:30 Completed CBC Stat Lab 12/07/24 02:30 Completed CMP [Comprehensive Metabolic Panel] Stat Lab 12/07/24 02:30 Completed HIV (1&2) Antibody Rapid Stat Lab 12/07/24 02:30 Completed Lipase Stat Lab 12/07/24 02:30 Completed Diazepam [Valium] Med 12/07/24 03:31 Discontinued 5 mg PO X1 ONE Famotidine [Pepcid] Med 12/07/24 04:49 Discontinued 40 mg PO X1 ONE mg Hyd/Al Hyd/Elizabeth Susp [Maalox Susp] Med 12/07/24 04:49 Discontinued 30 ml PO X1 ONE Vital Signs Vital signs: Vital Signs Temperature 98.6 F 12/07/24 01:11 Pulse Rate 79 12/07/24 01:11 Respiratory Rate 18 12/07/24 01:11 Blood Pressure 130/79 12/07/24 01:11 Pulse Oximetry (%) 95 12/07/24 01:11 Oxygen Delivery Method Room Air 12/07/24 01:11 O2 at 95% on RA and WNLs Abdominal Pain MDM MDM Narrative MDM Narrative:: 29M with history of alcoholic liver disease presents to ED with several days of intermittent ab pain and N/V. Patient was here twice for this recently with unremarkable blood work and CT. Patient does not want any pain meds. Separately, patient wants HIV testing since he's supposed to get it every 3 months due to encounter with HIV+ partner. Patient states he hasn't drank since June of last year. Patient has Zofran from clinic, but hasn't taken any because he was nervous. Physical exam reveals clear ENT lungs. No focal ab tenderness. Patient is afebrile, alert, but mildly anxious. No leukocytosis. CMP unremarkable. Ammonia and lipase normal. HIV neg. Upfitter given. Patient data External records reviewed:: [facility] previous records Clinical information provided by:: patient Social determinants that could affect healthcare access:: alcohol use Patient has the following chronic illnesses:: alcoholic liver disease How is presenting disease/condition affected by chronic disease/condition?: exacerbated by Evaluation data The following diagnostics were reviewed and interpreted by me:: lab results Lab and/or radiology exams considered but not ordered:: ordered Interpretation Summary: above Medications / Prescriptions Medications or Prescriptions considered but not ordered:: ordered Medication administrations:: Medication Administration History Discontinued Medications Al Hydrox/Mg Hydrox/Simethicone (Mg Hyd/Al Hyd/Elizabeth (Maalox Reg) Susp 30 Ml Udc) 30 ml PO X1 ONE Stop: 12/07/24 04:50 Diazepam (Diazepam 5 Mg Tablet) 5 mg PO X1 ONE Stop: 12/07/24 03:32 Last Admin: 12/07/24 04:05 Dose: 5 mg Documented By: CVScott Famotidine (Famotidine 20 Mg Tablet) 40 mg PO X1 ONE Stop: 12/07/24 04:50 above Consultations Consultation(s) initiated? (list below): No Diagnosis Differential diagnosis abdominal pain: abdominal pain, acute appendicitis, calculus of kidney, constipation, diverticulitis, gastroenteritis, pancreatitis and small bowel obstruction Most likely diagnosis given after review of the tests above:: ab pain Admission Indicated Admission indicated?: not indicated Admission Request Was there a request for admission?: No Disposition Plan Disposition Plan: Discharge Discharge Attestation Discharge Attestation: The patient and all family members were given an opportunity to ask questions and understood the discharge instructions. Discharge instructions specifically effects, indications for sooner follow up or return to the emergency department, and the expected course of current diagnosis. Patient condition: Stable Discharge Plan Plan Patient Disposition: HOME (Self Care) Disposition Comment: Stable Prescriptions/Referrals Prescriptions/Med Rec: No Action sucralfate 100 mg/mL suspension 10 ml PO BID Qty: 200 0RF acetaminophen 500 mg capsule 1,000 mg PO Q6H PRN (Reason: fever or pain) Qty: 30 0RF ibuprofen 800 mg tablet 800 mg PO TID PRN (Reason: pain) Qty: 30 0RF lorazepam [Ativan] 1 mg tablet 1 mg PO BID PRN (Reason: anxiety) Qty: 20 0RF chlordiazepoxide HCl 25 mg capsule 25 mg PO BID PRN (Reason: alcohol withdrawal) Qty: 14 0RF pantoprazole 40 mg tablet,delayed release (DR/EC) 40 mg PO QDAY Qty: 30 0RF ondansetron 4 mg tablet,disintegrating 4 mg PO Q8H PRN (Reason: nausea and vomiting) Qty: 30 0RF ibuprofen 600 mg tablet 600 mg PO Q6H Qty: 30 0RF pantoprazole [Protonix] 40 mg tablet,delayed release (DR/EC) 40 mg PO QDAY Qty: 14 0RF lactulose 20 gram/30 mL solution 20 g PO BID PRN (Reason: constipation) Qty: 1200 0RF dicyclomine 20 mg tablet 20 mg PO Q6HR PRN (Reason: abdominal pain) Qty: 30 0RF dextromethorphan-guaifenesin [Mucinex DM] 60-1,200 mg tablet extended release 12 hr 1 tab PO Q12H PRN (Reason: congestion/cough) Qty: 20 0RF fluticasone propionate [Flonase Allergy Relief] 50 mcg/actuation spray,suspension 2 spray intranasal QDAY Qty: 16 0RF Rx Instructions: administer into each nostril ibuprofen 600 mg tablet 600 mg PO Q6H PRN (Reason: pain) Qty: 30 0RF ondansetron 4 mg tablet,disintegrating 4 mg PO Q8H PRN (Reason: nausea and vomiting) Qty: 30 0RF acetaminophen 500 mg capsule 500 mg PO Q6H PRN (Reason: pain) Qty: 30 0RF Referrals: Kash Ferris MD [Primary Care Provider] - In 1 week Problem List Clinical Impression: Abdominal pain Patient/Caregiver Discharge Instructions Education Materials: ED Pain, Acute, Uncertain Cause Additional Instructions: Please follow-up with PCP within 24-48 hours and return immediately if symptoms worsen. Print Language: Spanish Stand Alone Forms: Patient Portal Info Letter PA/CONTROL TOWER RADIO OPERATOR Supervising Physician PA/CONTROL TOWER RADIO OPERATOR Supervising Physician: Dr. Segovia
[2024-12-07 02:45] LABS: Basophils # (Auto) 0.1 Thou/mm3 (0.0-0.2); Basophils % (Auto) 1 % (0-2.5); Eosinophils # (Auto) 0.4 Thou/mm3 (0.0-0.5); Eosinophils % (Auto) 4 % (0-10); Hematocrit 39.8 % (41.0-53.0); Hemoglobin 14.4 g/dL (13.5-16.0); Immature Granulocytes % (Auto) 0 % (0-0); Immature Granulocytes Auto 0.02 Thou/mm3 (0.00-0.00); Lymphocytes # (Auto) 3.7 Thou/mm3 (1.0-4.8); Lymphocytes % (Auto) 41 % (10-50); Mean Corpuscular HGB Conc 36.2 g/dl (31.0-37.0); Mean Corpuscular Hemoglobin 31.2 pg (25.0-35.0); Mean Corpuscular Volume 86 fL (80-100); Monocytes # (Auto) 0.7 Thou/mm3 (0.0-0.8); Monocytes % (Auto) 8 % (0-12); Neutrophils # (Auto) 4.2 Thou/mm3 (1.8-7.7); Neutrophils % (Auto) 46 % (37-80); Nucleated Red Blood Cell % 0 /100 WBC (0); Platelet Count 303 Thou/mm3 (140-440); RDW Standard Deviation 35.8 fL (35.1-43.9); Red Blood Count 4.62 Miln/mm3 (4.50-5.90); White Blood Count 9.2 Thou/mm3 (3.8-10.6)
[2024-12-07 02:54] LABS: Ammonia 18 uMol/L (11-32)
[2024-12-07 03:08] LABS: Alanine Aminotransferase 28 U/L (10-49); Albumin, Serum 4.7 gm/dL (3.5-5.0); Alcohol, Blood Medical < 3.0 mg/dL (0-10.0); Alkaline Phosphatase 49 U/L (46-116); Anion Gap 7 (7-16); Aspartate Amino Transferase 23 U/L (0-34); BUN/Creatinine Ratio 14 Ratio (12-20); Bilirubin,Total 0.4 mg/dL (0.3-1.2); Blood Urea Nitrogen 14 mg/dL (9-23); Calcium 9.8 mg/dL (8.3-10.6); Calcium (Corrected) 9.8 mg/dL (8.5-10.1); Carbon Dioxide 28.4 mMol/L (20.0-31.0); Chloride 105 mMol/L (98-107); Estimated Creatinine Clearance 111.6 mL/min (>60); Globulin 2.3 gm/dL (2.3-3.5); Glucose 96 mg/dL (74-106); Lipase 52 U/L (12-53); Osmolality,Calculated 279 (275-295); Potassium 3.8 mMol/L (3.4-5.1); Sodium 140 mMol/L (136-145); eGFR > 60 See Note
[2024-12-07] MEDS: DIAZEPAM 5 MG TABLET PO (04:05)
[2024-12-07 04:16] LABS: HIV (1&2) Antibody Rapid Non-Reactive
[2024-12-07] MEDS: MG HYD/AL HYD/SIME (Maalox Reg) SUSP 30 ML UDC PO (05:03)
[2024-12-07] MEDS: FAMOTIDINE 20 MG TABLET 40 MG PO (05:03)
[2024-12-07 05:04] VITALS: RESP 18
== END 2024-12-07 05:05 | disposition home or self-care (01) ==
PROVIDERS: Physician Assistant; Emergency Provider Emergency Medicine; PCP Family Medicine
DX: R10.9 Unspecified abdominal pain (principal); K70.9 Alcoholic liver disease, unspecified; F10.90 Alcohol use, unspecified, uncomplicated; Y90.0 Blood alcohol level of less than 20 mg/100 ml; I10 Essential (primary) hypertension; F17.210 Nicotine dependence, cigarettes, uncomplicated
CPT/HCPCS: 36415; 80053; 80320; 82140; 83690; 85025; 86703; 99283; A9270; G0480

== ENCOUNTER 2024-12-18 12:16 | Emergency (ER) | payer MEDICAID, SELFPAY ==
--- NOTE | 2024-12-18 12:46 | XR_ITS ---
Examination: Shoulder,right, 3 views Technique: Shoulder AP internal rotation, AP external rotation, Y view shoulder, 3 views Exam date and time :December 18, 2024 1303 hours INDICATIONS: Lifting weights injury 3 days ago with shoulder pain. FINDINGS: Mild narrowing glenohumeral joint No shoulder fracture or dislocation No AC joint separation IMPRESSION: No fracture or shoulder dislocation
[2024-12-18 12:53] VITALS: BP 117/79; PULSE 68; RESP 16; TEMP 37; O2SAT 97; BMI 28.8
[2024-12-18] MEDS: IBUPROFEN TAB 400 MG TABLET 800 MG PO (13:16)
--- NOTE | 2024-12-18 13:25 | PD.EDUPEX ---
Upper Extremity Injury RME/HPI General Chief Complaint: Extremity Injury, Upper Stated Complaint: RIGHT SHOULDER PAIN AFTER LIFTING Time Seen by Provider: 12/18/24 12:34 Arrival date/time: 12/18/24 12:16 29-year-old male presents to the emergency department complains of right shoulder pain patient reports pain after lifting patient reports that he exacerbated the injury by lifting weights after he already developed an injury there are no other associated symptoms or aggravating factors no other modifying factors, patient denies taking medication before coming to ER today Limitations: no limitations Related Data Previous Rx's ?Medication ?Instructions ?Recorded sucralfate 100 mg/mL oral 10 ml PO BID #200 mL 01/16/23 suspension chlordiazepoxide HCl 25 mg capsule 25 mg PO BID PRN alcohol 10/02/23 withdrawal #14 caps ondansetron 4 mg disintegrating 4 mg PO Q8H PRN nausea and 10/02/23 tablet vomiting #30 tabs pantoprazole 40 mg tablet,delayed 40 mg PO QDAY #30 tabs 10/02/23 release ibuprofen 600 mg tablet 600 mg PO Q6H #30 tabs 10/24/23 acetaminophen 500 mg capsule 1,000 mg (2 x 500 mg) PO Q6H PRN 05/09/24 fever or pain #30 caps ibuprofen 800 mg tablet 800 mg PO TID PRN pain #30 tabs 05/09/24 lorazepam 1 mg tablet (Ativan) 1 mg PO BID PRN anxiety #20 tabs 05/09/24 pantoprazole 40 mg tablet,delayed 40 mg PO QDAY #14 tabs 07/12/24 release (Protonix) dextromethorphan-guaifenesin ER 60 1 tab PO Q12H PRN congestion/cough 08/19/24 mg-1,200 mg tab,extend #20 tabs release,12hr (Mucinex DM) dicyclomine 20 mg tablet 20 mg PO Q6HR PRN abdominal pain 08/19/24 #30 tabs fluticasone propionate 50 2 spray intranasal QDAY #16 grams 08/19/24 mcg/actuation nasal spray,suspension (Flonase Allergy Relief) ibuprofen 600 mg tablet 600 mg PO Q6H PRN pain #30 tabs 08/19/24 lactulose 20 gram/30 mL oral 20 g (30 mL) PO BID PRN 08/19/24 solution constipation #1,200 mL ondansetron 4 mg disintegrating 4 mg PO Q8H PRN nausea and 10/04/24 tablet vomiting #30 tabs acetaminophen 500 mg capsule 500 mg PO Q6H PRN pain #30 caps 12/04/24 Allergies Allergy/AdvReac Type Severity Reaction Status Date / Time grass pollen Allergy Redness of Verified 12/18/24 12:18 Skin SEEDS Allergy Mild Abdominal Uncoded 12/18/24 12:18 Pain Review of Systems Review of Systems Systems Reviewed: All systems reviewed, normal except as documented Constitutional Constitutional: Reports system reviewed and no additional complaints, except as documented, Denies fever(s) and Denies headache(s) Eyes Eyes: Reports system reviewed and no additional complaints, except as documented and Denies blurry vision ENT Ears, Nose, Mouth, and Throat: Reports system reviewed and no additional complaints, except as documented, Denies headache(s), Denies nasal congestion and Denies nasal discharge Cardiovascular Cardiovascular: Reports system reviewed and no additional complaints, except as documented, Denies chest pain and Denies dyspnea Respiratory Respiratory: Reports system reviewed and no additional complaints, except as documented, Denies chest congestion, Denies cough and Denies dyspnea Gastrointestinal Gastrointestinal: Reports system reviewed and no additional complaints, except as documented and Denies abdominal pain Musculoskeletal Musculoskeletal: Reports system reviewed and no additional complaints, except as documented, Reports arthralgias, Denies deformity, Denies numbness, Reports stiffness and Denies tingling Integumentary/Breasts Skin/Breast: Reports system reviewed and no additional complaints, except as documented and Denies rash Neurologic Neurologic: Reports system reviewed and no additional complaints, except as documented, Reports as per HPI, Denies headache(s), Denies numbness and Denies tingling Past Medical History Past Medical History CARDIAC: Positive Hypertension; Negative Cardiac Disorders or Congestive Heart Failure RESPIRATORY: Negative Chronic Obstructive Pulmonary Disease (COPD) or Asthma GASTROINTESTINAL: Positive Gastrointestinal Disorders, Cirrhosis and Esophageal Varices GENITOURINARY: Negative Renal Disease ENDOCRINE: Negative Diabetes Mellitus Type 1 or Diabetes Mellitus Type 2 HEMATOLOGIC: Negative Sickle Cell Disease Social History SMOKING STATUS: Current some day smoker SUBSTANCE USE: methamphetamine ED Exam General Limitations: Present no limitations General appearance: Present alert and in no apparent distress Head Head exam: Present atraumatic Eye Eye exam: Present normal appearance, PERRL and EOMI ENT ENT exam: Present normal exam, normal oropharynx and mucous membranes moist Neck Neck exam: Present normal inspection, full ROM and trachea midline Chest Chest inspection: Present normal inspection and symmetric chest wall rise Respiratory Respiratory exam: Present normal lung sounds bilaterally Cardiovascular Cardiovascular exam: Present regular rate, normal rhythm and normal heart sounds Abdominal Exam Abdominal exam: Present soft and normal bowel sounds Extremities Exam Extremities exam: Present tenderness and normal capillary refill; Absent joint swelling Back Exam Back exam: Present normal inspection and full ROM Neurological Exam Neurological exam: Present alert, oriented X3 and CN II-XII intact Psychiatric Psychiatric exam: Present normal affect and normal mood Skin Skin exam: Present warm, dry, intact and normal color Course Quality Measures none Orders Category Date Time Status sling [Splint / Immobilizer] STAT Care 12/18/24 13:30 Active XR shoulder RT min 2V Stat Exams 12/18/24 12:46 Completed Ibuprofen Tab [Motrin Tab] Med 12/18/24 12:46 Discontinued 800 mg PO X1 ONE Vital Signs Vital signs: Vital Signs Temperature 98.6 F 12/18/24 12:53 Pulse Rate 68 12/18/24 12:53 Respiratory Rate 16 12/18/24 12:53 Blood Pressure 117/79 12/18/24 12:53 Pulse Oximetry (%) 97 12/18/24 12:53 Oxygen Delivery Method Room Air 12/18/24 12:53 O2 saturation 97% room air within the limits Extremity Injury MDM Narrative MDM Narrative:: 29-year-old male presents to the emergency department complains of right shoulder pain patient reports pain after lifting patient reports that he exacerbated the injury by lifting weights after he already developed an injury there are no other associated symptoms or aggravating factors no other modifying factors, patient denies taking medication before coming to ER today On exam patient well-appearing patient does not appear ill or toxic On exam patient has tenderness of right shoulder patient does have full range of motion but reports pain with movement of the shoulder Imaging obtained no acute emergent findings noted Patient placed in a sling Patient discharged home in no distress to follow-up with primary care doctor in the next 24 to 48 hours and for any worsening symptoms to return to the ER immediately Patient data External records reviewed:: [facility] previous records Clinical information provided by:: patient Social determinants that could affect healthcare access:: none Patient has the following chronic illnesses:: See history How is presenting disease/condition affected by chronic disease/condition?: uneffected by Evaluation data The following diagnostics were reviewed and interpreted by me:: radiology exam(s) Lab and/or radiology exams considered but not ordered:: Radiology obtain Interpretation Summary: Reviewed by me Medications / Prescriptions Medications or Prescriptions considered but not ordered:: Given Medication administrations:: Medication Administration History Discontinued Medications Ibuprofen (Ibuprofen Tab 400 Mg Tablet) 800 mg PO X1 ONE Stop: 12/18/24 12:47 Last Admin: 12/18/24 13:16 Dose: 800 mg Documented By: OA Given Consultations Consultation(s) initiated? (list below): No Diagnosis Upper Extremity Injury Differential Diagnosis: dislocation of shoulder, fracture of humerus and other (Shoulder strain) Most likely diagnosis given after review of the tests above:: Rotator cuff injury Admission Indicated Admission indicated?: not indicated Admission Request Was there a request for admission?: No Disposition Plan Disposition Plan: Discharge Discharge Attestation Discharge Attestation: The patient and all family members were given an opportunity to ask questions and understood the discharge instructions. Discharge instructions specifically effects, indications for sooner follow up or return to the emergency department, and the expected course of current diagnosis. Patient condition: Stable Discharge Plan Plan Patient Disposition: HOME (Self Care) Disposition Comment: Stable Prescriptions/Referrals Prescriptions/Med Rec: No Action sucralfate 100 mg/mL suspension 10 ml PO BID Qty: 200 0RF acetaminophen 500 mg capsule 1,000 mg PO Q6H PRN (Reason: fever or pain) Qty: 30 0RF ibuprofen 800 mg tablet 800 mg PO TID PRN (Reason: pain) Qty: 30 0RF lorazepam [Ativan] 1 mg tablet 1 mg PO BID PRN (Reason: anxiety) Qty: 20 0RF chlordiazepoxide HCl 25 mg capsule 25 mg PO BID PRN (Reason: alcohol withdrawal) Qty: 14 0RF pantoprazole 40 mg tablet,delayed release (DR/EC) 40 mg PO QDAY Qty: 30 0RF ondansetron 4 mg tablet,disintegrating 4 mg PO Q8H PRN (Reason: nausea and vomiting) Qty: 30 0RF ibuprofen 600 mg tablet 600 mg PO Q6H Qty: 30 0RF pantoprazole [Protonix] 40 mg tablet,delayed release (DR/EC) 40 mg PO QDAY Qty: 14 0RF lactulose 20 gram/30 mL solution 20 g PO BID PRN (Reason: constipation) Qty: 1200 0RF dicyclomine 20 mg tablet 20 mg PO Q6HR PRN (Reason: abdominal pain) Qty: 30 0RF dextromethorphan-guaifenesin [Mucinex DM] 60-1,200 mg tablet extended release 12 hr 1 tab PO Q12H PRN (Reason: congestion/cough) Qty: 20 0RF fluticasone propionate [Flonase Allergy Relief] 50 mcg/actuation spray,suspension 2 spray intranasal QDAY Qty: 16 0RF Rx Instructions: administer into each nostril ibuprofen 600 mg tablet 600 mg PO Q6H PRN (Reason: pain) Qty: 30 0RF ondansetron 4 mg tablet,disintegrating 4 mg PO Q8H PRN (Reason: nausea and vomiting) Qty: 30 0RF acetaminophen 500 mg capsule 500 mg PO Q6H PRN (Reason: pain) Qty: 30 0RF Referrals: No Primary/Family,Physician [Primary Care Provider] - In 1 week Problem List Clinical Impression: Pain in right shoulder Patient/Caregiver Discharge Instructions Education Materials: ED Arthralgia Additional Instructions: Please follow up with your primary care doctor in the next 24-48hrs for any worsening symptoms return here immediately Please request outpatient MRI from PCP Print Language: Belgian Stand Alone Forms: Anh Award Info., Patient Portal Info Letter PA/[employer] Supervising Physician TIGRE/MONROE Supervising Physician: Dr Savage
== END 2024-12-18 16:16 | disposition home or self-care (01) ==
PROVIDERS: Emergency Provider Emergency Medicine
DX: M25.511 Pain in right shoulder (principal); I10 Essential (primary) hypertension; F17.210 Nicotine dependence, cigarettes, uncomplicated; X50.0XXA Overexertion from strenuous movement or load, initial encounter; Y93.B9 Activity, other involving muscle strengthening exercises
CPT/HCPCS: 73030; 99283; A4565; A9270

== ENCOUNTER 2024-12-27 20:13 | Emergency (ER) | payer MEDICAID, SELFPAY ==
[2024-12-27 20:30] VITALS: BP 123/72; PULSE 81; RESP 18; TEMP 36.7; O2SAT 95
[2024-12-27 21:36] VITALS: BP 122/77; PULSE 68; RESP 18; TEMP 37.1; O2SAT 97; BMI 29.5
[2024-12-27] MEDS: CLINDAMYCIN 150 MG CAPSULE 300 MG PO (21:58)
[2024-12-27] MEDS: IBUPROFEN TAB 400 MG TABLET PO (21:59)
--- NOTE | 2024-12-27 23:17 | PD.EDSKIN ---
ED Skin Abcess FB-RME/HPI General Chief complaint: Extremity Injury, Upper Stated complaint: RIGHT PINKY FINGER INGROWN NAIL Time Seen by Provider: 12/27/24 21:45 Arrival date/time: 12/27/24 20:13 29M with history of alcoholic cirrhosis presents to ED 2 days of R pinky fingernail pain. Limitations: no limitations Related Data Previous Rx's ?Medication ?Instructions ?Recorded sucralfate 100 mg/mL oral 10 ml PO BID #200 mL 01/16/23 suspension chlordiazepoxide HCl 25 mg capsule 25 mg PO BID PRN alcohol 10/02/23 withdrawal #14 caps ondansetron 4 mg disintegrating 4 mg PO Q8H PRN nausea and 10/02/23 tablet vomiting #30 tabs pantoprazole 40 mg tablet,delayed 40 mg PO QDAY #30 tabs 10/02/23 release ibuprofen 600 mg tablet 600 mg PO Q6H #30 tabs 10/24/23 acetaminophen 500 mg capsule 1,000 mg (2 x 500 mg) PO Q6H PRN 05/09/24 fever or pain #30 caps ibuprofen 800 mg tablet 800 mg PO TID PRN pain #30 tabs 05/09/24 lorazepam 1 mg tablet (Ativan) 1 mg PO BID PRN anxiety #20 tabs 05/09/24 pantoprazole 40 mg tablet,delayed 40 mg PO QDAY #14 tabs 07/12/24 release (Protonix) dextromethorphan-guaifenesin ER 60 1 tab PO Q12H PRN congestion/cough 08/19/24 mg-1,200 mg tab,extend #20 tabs release,12hr (Mucinex DM) dicyclomine 20 mg tablet 20 mg PO Q6HR PRN abdominal pain 08/19/24 #30 tabs fluticasone propionate 50 2 spray intranasal QDAY #16 grams 08/19/24 mcg/actuation nasal spray,suspension (Flonase Allergy Relief) ibuprofen 600 mg tablet 600 mg PO Q6H PRN pain #30 tabs 08/19/24 lactulose 20 gram/30 mL oral 20 g (30 mL) PO BID PRN 08/19/24 solution constipation #1,200 mL ondansetron 4 mg disintegrating 4 mg PO Q8H PRN nausea and 10/04/24 tablet vomiting #30 tabs acetaminophen 500 mg capsule 500 mg PO Q6H PRN pain #30 caps 12/04/24 clindamycin HCl 300 mg capsule 300 mg PO TID 5 days #15 caps 12/27/24 Allergies Allergy/AdvReac Type Severity Reaction Status Date / Time grass pollen Allergy Redness of Verified 12/27/24 20:16 Skin SEEDS Allergy Mild Abdominal Uncoded 12/27/24 20:16 Pain Review of Systems Review of Systems Systems Reviewed: All systems reviewed, normal except as documented Constitutional Constitutional: Reports system reviewed and no additional complaints, except as documented, Denies fever(s) and Denies headache(s) ENT Ears, Nose, Mouth, and Throat: Denies disequilibrium and Denies headache(s) Cardiovascular Cardiovascular: Reports system reviewed and no additional complaints, except as documented, Denies chest pain and Denies dyspnea Respiratory Respiratory: Reports system reviewed and no additional complaints, except as documented, Denies cough and Denies dyspnea Gastrointestinal Gastrointestinal: Reports system reviewed and no additional complaints, except as documented, Denies abdominal pain, Denies nausea and Denies vomiting Integumentary/Breasts Skin/Breast: Reports as per HPI and Reports skin pain Neurologic Neurologic: Reports system reviewed and no additional complaints, except as documented, Denies confusion, Denies disequilibrium and Denies headache(s) Psychiatric Psychiatric: Denies confusion Past Medical History Past Medical History CARDIAC: Positive Hypertension; Negative Cardiac Disorders or Congestive Heart Failure RESPIRATORY: Negative Chronic Obstructive Pulmonary Disease (COPD) or Asthma GASTROINTESTINAL: Positive Gastrointestinal Disorders, Cirrhosis and Esophageal Varices GENITOURINARY: Negative Renal Disease ENDOCRINE: Negative Diabetes Mellitus Type 1 or Diabetes Mellitus Type 2 HEMATOLOGIC: Negative Sickle Cell Disease Social History SMOKING STATUS: Former smoker SUBSTANCE USE: methamphetamine ED Exam General Limitations: Present no limitations General appearance: Present alert and in no apparent distress Head Head exam: Present atraumatic Eye Eye exam: Present normal appearance, PERRL and EOMI ENT ENT exam: Present normal exam, normal oropharynx and mucous membranes moist Neck Neck exam: Present normal inspection, full ROM and trachea midline Chest Chest inspection: Present normal inspection and symmetric chest wall rise Respiratory Respiratory exam: Present normal lung sounds bilaterally Cardiovascular Cardiovascular exam: Present regular rate, normal rhythm and normal heart sounds Abdominal Exam Abdominal exam: Present soft and normal bowel sounds Extremities Exam Extremities exam: Present full ROM Expanded Upper Extremity Exam Hand exam: Present full ROM (skin near R pinky fingernail), tenderness and erythema Back Exam Back exam: Present normal inspection and full ROM Neurological Exam Neurological exam: Present alert, oriented X3 and CN II-XII intact Psychiatric Psychiatric exam: Present normal affect and normal mood Skin Skin exam: Present warm, dry, intact and normal color Course Quality Measures none Orders Category Date Time Status Clindamycin [Cleocin] Med 12/27/24 21:45 Discontinued 300 mg PO X1 ONE Ibuprofen Tab [Motrin Tab] Med 12/27/24 21:45 Discontinued 400 mg PO X1 ONE Vital Signs Vital signs: Vital Signs Temperature 98.0 F 12/27/24 20:30 Pulse Rate 81 12/27/24 20:30 Respiratory Rate 18 12/27/24 20:30 Blood Pressure 123/72 12/27/24 20:30 Pulse Oximetry (%) 95 12/27/24 20:30 Oxygen Delivery Method Room Air 12/27/24 20:30 O2 at 95% on RA and WNLs Skin / Abscess / Foreign Body MDM Narrative MDM Narrative:: 29M with history of alcoholic cirrhosis presents to ED 2 days of R pinky fingernail pain. Physical exam reveals redness and tenderness near R pinky fingernail. ROM intact. Patient is afebrile, calm, and alert. Likely small paronychia vs cellulitis. Patient data External records reviewed:: [facility] previous records Clinical information provided by:: patient Social determinants that could affect healthcare access:: alcohol use Patient has the following chronic illnesses:: alcoholic cirrhosis How is presenting disease/condition affected by chronic disease/condition?: exacerbated by Evaluation data The following diagnostics were reviewed and interpreted by me:: other (specify) (none) Lab and/or radiology exams considered but not ordered:: not ordered Interpretation Summary: n/a Medications / Prescriptions Medications or Prescriptions considered but not ordered:: ordered Medication administrations:: Medication Administration History Discontinued Medications Clindamycin HCl (Clindamycin 150 Mg Capsule) 300 mg PO X1 ONE Stop: 12/27/24 21:46 Last Admin: 12/27/24 21:58 Dose: 300 mg Documented By: LD Ibuprofen (Ibuprofen Tab 400 Mg Tablet) 400 mg PO X1 ONE Stop: 12/27/24 21:46 Last Admin: 12/27/24 21:59 Dose: 400 mg Documented By: LD Comments: pt calm and relaxed, no distress noted above Consultations Consultation(s) initiated? (list below): No Diagnosis Skin/Abscess Differential Diagnosis: abscess of skin or subcutaneous tissue, viral exanthem, dermatophytosis, urticaria, herpes zoster, allergic reaction to drug, cellulitis, eczema, insect bites, impetigo, contact dermatitis and other (paronychia) Most likely diagnosis given after review of the tests above:: paronychia Admission Indicated Admission indicated?: not indicated Admission Request Was there a request for admission?: No Disposition Plan Disposition Plan: Discharge Discharge Attestation Discharge Attestation: The patient and all family members were given an opportunity to ask questions and understood the discharge instructions. Discharge instructions specifically effects, indications for sooner follow up or return to the emergency department, and the expected course of current diagnosis. Patient condition: Stable Discharge Plan Plan Patient Disposition: HOME (Self Care) Disposition Comment: Stable Prescriptions/Referrals Prescriptions/Med Rec: New clindamycin HCl 300 mg capsule 300 mg PO TID 5 Days Qty: 15 0RF No Action sucralfate 100 mg/mL suspension 10 ml PO BID Qty: 200 0RF acetaminophen 500 mg capsule 1,000 mg PO Q6H PRN (Reason: fever or pain) Qty: 30 0RF ibuprofen 800 mg tablet 800 mg PO TID PRN (Reason: pain) Qty: 30 0RF lorazepam [Ativan] 1 mg tablet 1 mg PO BID PRN (Reason: anxiety) Qty: 20 0RF chlordiazepoxide HCl 25 mg capsule 25 mg PO BID PRN (Reason: alcohol withdrawal) Qty: 14 0RF pantoprazole 40 mg tablet,delayed release (DR/EC) 40 mg PO QDAY Qty: 30 0RF ondansetron 4 mg tablet,disintegrating 4 mg PO Q8H PRN (Reason: nausea and vomiting) Qty: 30 0RF ibuprofen 600 mg tablet 600 mg PO Q6H Qty: 30 0RF pantoprazole [Protonix] 40 mg tablet,delayed release (DR/EC) 40 mg PO QDAY Qty: 14 0RF lactulose 20 gram/30 mL solution 20 g PO BID PRN (Reason: constipation) Qty: 1200 0RF dicyclomine 20 mg tablet 20 mg PO Q6HR PRN (Reason: abdominal pain) Qty: 30 0RF dextromethorphan-guaifenesin [Mucinex DM] 60-1,200 mg tablet extended release 12 hr 1 tab PO Q12H PRN (Reason: congestion/cough) Qty: 20 0RF fluticasone propionate [Flonase Allergy Relief] 50 mcg/actuation spray,suspension 2 spray intranasal QDAY Qty: 16 0RF Rx Instructions: administer into each nostril ibuprofen 600 mg tablet 600 mg PO Q6H PRN (Reason: pain) Qty: 30 0RF ondansetron 4 mg tablet,disintegrating 4 mg PO Q8H PRN (Reason: nausea and vomiting) Qty: 30 0RF acetaminophen 500 mg capsule 500 mg PO Q6H PRN (Reason: pain) Qty: 30 0RF Problem List Clinical Impression: Paronychia Patient/Caregiver Discharge Instructions Education Materials: ED Paronychia of the Finger or Toe Additional Instructions: Please follow-up with PCP within 24-48 hours and return immediately if symptoms worsen. Print Language: Mongolian Stand Alone Forms: Patient Portal Info Letter PA/MONROE Supervising Physician TIGRE/MONROE Supervising Physician: Dr. Preston
== END 2024-12-27 22:12 | disposition home or self-care (01) ==
PROVIDERS: Emergency Provider Emergency Medicine; PCP Family Medicine
DX: L03.011 Cellulitis of right finger (principal); I10 Essential (primary) hypertension; K70.30 Alcoholic cirrhosis of liver without ascites; F10.90 Alcohol use, unspecified, uncomplicated; Y90.0 Blood alcohol level of less than 20 mg/100 ml; Z87.891 Personal history of nicotine dependence
CPT/HCPCS: 99282; A9270

== ENCOUNTER 2025-05-18 05:00 | Emergency (ER) | payer MEDICAID, SELFPAY ==
[2025-05-18 05:21] VITALS: BP 149/95; PULSE 85; RESP 20; TEMP 36.8; O2SAT 95
[2025-05-18 05:28] VITALS: PULSE 96; RESP 20; O2SAT 98; BMI 28.8
[2025-05-18 06:00] VITALS: BP 152/106; PULSE 89; RESP 21; O2SAT 93
[2025-05-18 06:29] LABS: Collection Type, Urine Voided; WBC,Urine 0 /hpf (0-5)
[2025-05-18 06:39] LABS: Bilirubin,Urine Negative (Negative); Blood,Urine 1+ (Negative); Clarity,Urine Clear (Clear/Hazy); Color,Urine Yellow (Lt Yel-Yel); Glucose, Urine Negative (Negative); Ketones,Urine Negative (Negative); Leukocyte Esterase,Urine Negative (Negative); Nitrite,Urine Negative (Negative); PH,Urine 6.0 (5.0-7.0); Protein,Urine 1+ (Neg - Trace); RBC,Urine 4 /hpf (0-3); Specific Gravity,Urine 1.040 (1.001-1.035); Squamous Epithelial Cell,Urine < 1 /hpf (0-5); Urobilinogen,Urine Negative mg/dL (0.0-1.0)
[2025-05-18 06:45] LABS: Amphetamine/Methamp Scrn,U Negative (Negative); Barbiturate Screen,Urine Negative (Negative); Benzodiazepines Screen,Urine Negative (Negative); Benzoylecgonine Screen, Ur Negative (Negative); Fentanyl Screen,Urine Negative (Negative); Opiate Screen,Urine Negative (Negative); THC Screen,Urine Negative (Negative)
--- NOTE | 2025-05-18 06:50 | PD.EDCHEST ---
ED Chest Pain RME/HPI General Chief Complaint: Alcohol Stated Complaint: CHEST WALL PAIN Time Seen by Provider: 05/18/25 06:14 Arrival date/time: 05/18/25 05:00 Limitations: no limitations RME / HPI RME / HPI narrative: 29 year old male with history of hypertension, diabetes, hyperlipidemia, liver cirrhosis ~ 1 year ago presents to the ED for evaluation of chest wall pain beginning last night. Described as aching in sensation located across his chest, rating as moderate. Reportedly has had history of similar chest pain once in a while however not to this severity. States he took Ibuprofen last night without improvement. Additionally complains of right upper abdominal pain, nausea, vomiting, and feeling shaky. Last drink was 7 hours ago. Patient states he has been drinking hard liquor for 2 months straight and yesterday drank more than his usual. Related Data Home Medications ?Medication ?Instructions ?Recorded ?Confirmed lisinopril 20 mg tablet 20 mg PO DAILY 05/18/25 05/18/25 Previous Rx's ?Medication ?Instructions ?Recorded sucralfate 100 mg/mL oral 10 ml PO BID #200 mL 01/16/23 suspension chlordiazepoxide HCl 25 mg capsule 25 mg PO BID PRN alcohol 10/02/23 withdrawal #14 caps ondansetron 4 mg disintegrating 4 mg PO Q8H PRN nausea and 10/02/23 tablet vomiting #30 tabs pantoprazole 40 mg tablet,delayed 40 mg PO QDAY #30 tabs 10/02/23 release ibuprofen 600 mg tablet 600 mg PO Q6H #30 tabs 10/24/23 acetaminophen 500 mg capsule 1,000 mg (2 x 500 mg) PO Q6H PRN 05/09/24 fever or pain #30 caps ibuprofen 800 mg tablet 800 mg PO TID PRN pain #30 tabs 05/09/24 lorazepam 1 mg tablet (Ativan) 1 mg PO BID PRN anxiety #20 tabs 05/09/24 pantoprazole 40 mg tablet,delayed 40 mg PO QDAY #14 tabs 07/12/24 release (Protonix) dextromethorphan-guaifenesin ER 60 1 tab PO Q12H PRN congestion/cough 08/19/24 mg-1,200 mg tab,extend #20 tabs release,12hr (Mucinex DM) dicyclomine 20 mg tablet 20 mg PO Q6HR PRN abdominal pain 08/19/24 #30 tabs fluticasone propionate 50 2 spray intranasal QDAY #16 grams 08/19/24 mcg/actuation nasal spray,suspension (Flonase Allergy Relief) ibuprofen 600 mg tablet 600 mg PO Q6H PRN pain #30 tabs 08/19/24 lactulose 20 gram/30 mL oral 20 g (30 mL) PO BID PRN 08/19/24 solution constipation #1,200 mL ondansetron 4 mg disintegrating 4 mg PO Q8H PRN nausea and 10/04/24 tablet vomiting #30 tabs acetaminophen 500 mg capsule 500 mg PO Q6H PRN pain #30 caps 12/04/24 aluminum-mag hydroxide-simethicone 10 ml PO QID PRN dyspepsia #3,000 05/18/25 200 mg-200 mg-20 mg/5 mL oral susp mL (Maalox Advanced) famotidine 20 mg tablet (Pepcid) 20 mg PO QDAY GERD 10 days #10 tabs 05/18/25 magnesium oxide 400 mg PO QDAY Hypomagnesemia 5 05/18/25 days #5 caps Allergies Allergy/AdvReac Type Severity Reaction Status Date / Time grass pollen Allergy Redness of Verified 05/18/25 05:25 Skin SEEDS Allergy Mild Abdominal Uncoded 05/18/25 05:25 Pain Review of Systems Review of Systems Systems Reviewed: All systems reviewed, normal except as documented Past Medical History Past Medical History CARDIAC: Positive Hypertension; Negative Cardiac Disorders or Congestive Heart Failure RESPIRATORY: Negative Chronic Obstructive Pulmonary Disease (COPD) or Asthma GASTROINTESTINAL: Positive Gastrointestinal Disorders, Cirrhosis and Esophageal Varices GENITOURINARY: Negative Renal Disease ENDOCRINE: Negative Diabetes Mellitus Type 1 or Diabetes Mellitus Type 2 HEMATOLOGIC: Negative Sickle Cell Disease Social History SMOKING STATUS: Current some day smoker SUBSTANCE USE: methamphetamine ED Exam General Limitations: Present no limitations General appearance: Present alert and in no apparent distress Head Head exam: Present atraumatic, normocephalic and normal inspection Eye Eye exam: Present normal appearance, PERRL and EOMI ENT ENT exam: Present normal exam, normal oropharynx and mucous membranes moist Neck Neck exam: Present normal inspection, full ROM and trachea midline Chest Chest inspection: Present normal inspection and symmetric chest wall rise Respiratory Respiratory exam: Present normal lung sounds bilaterally Cardiovascular Cardiovascular exam: Present regular rate, normal rhythm and normal heart sounds Abdominal Exam Abdominal exam: Present soft and normal bowel sounds Extremities Exam Extremities exam: Present normal inspection and full ROM Back Exam Back exam: Present normal inspection and full ROM Neurological Exam Neurological exam: Present alert, oriented X3 and CN II-XII intact Psychiatric Psychiatric exam: Present normal affect and normal mood Skin Skin exam: Present warm, dry, intact and normal color Course Quality Measures none Orders Category Date Time Status EKG (ED ONLY) *Do not use* NOW Care 05/18/25 05:49 Completed Miscellaneous Nursing Order NOW Care 05/18/25 06:57 Completed EKG (ED Only) Stat Exams 05/18/25 05:49 Ordered Alcohol, Blood Medical Stat Lab 05/18/25 06:04 Completed CBC Stat Lab 05/18/25 06:04 Completed CMP [Comprehensive Metabolic Panel] Stat Lab 05/18/25 06:04 Completed Drug Screen,Urine Stat Lab 05/18/25 06:04 Completed INR [Prothrombin Time with INR] Stat Lab 05/18/25 06:44 Completed Ketone [Beta Hydroxybutyrate] Stat Lab 05/18/25 06:44 Completed Mag [Magnesium] Stat Lab 05/18/25 06:04 Completed Troponin I Stat Lab 05/18/25 06:04 Completed Urinalysis Stat Lab 05/18/25 06:04 Completed VBG [Venous Blood Gas] Stat Lab 05/18/25 06:44 Completed Acetaminophen Tab [Tylenol ES Tab] Med 05/18/25 08:20 Discontinued 1,000 mg PO X1 ONE Famotidine Inj [Pepcid Inj] Med 05/18/25 06:56 Discontinued 20 mg IVP X1 ONE Ibuprofen Tab [Motrin Tab] Med 05/18/25 08:29 Discontinued 600 mg PO X1 ONE LORazepam [Ativan] Med 05/18/25 08:58 Discontinued 0.5 mg PO X1 ONE Magnesium Oxide [Mag-Ox 400] Med 05/18/25 08:52 Discontinued 400 mg PO X1 ONE Magnesium Sulfate 1 gm Ivpb [Magnesium Sulfate Ivpb] Med 05/18/25 06:59 Discontinued 1 gm in 100 ml IV X1 Ondansetron Inj [Zofran Inj] Med 05/18/25 06:58 Discontinued 4 mg IVP X1 ONE Potassium Chloride [K-Dur] Med 05/18/25 06:59 Discontinued 40 meq PO X1 ONE Sodium Chloride 0.9% 1000 ml [Ns] 1,000 ml Med 05/18/25 06:58 Discontinued IV 999 mls/hr mg Hyd/Al Hyd/Elizabeth Susp [Maalox Susp] Med 05/18/25 06:56 Discontinued 30 ml PO X1 ONE Vital Signs Vital signs: Vital Signs Temperature 98.2 F 05/18/25 05:21 Pulse Rate 85 05/18/25 05:21 Respiratory Rate 20 05/18/25 05:21 Blood Pressure 149/95 H 05/18/25 05:21 Pulse Oximetry (%) 95 05/18/25 05:21 Pulse ox is 95% on room air which is adequate. Chest Pain MDM Narrative MDM Narrative:: Charito Solorio am scribing for and in the presence of Dr. Segovia. 0835: Patient remains clinically stable throughout the emergency department visit. We reviewed all the results, analysis, and treatment plans. Patient is amenable to discharge. Strict return precautions were outlined. Patient was discharged in stable condition. Patient data [place] [facility] [place]I reviewed ED Visit on 12/18/2024 ) Clinical information provided by:: patient Social determinants that could affect healthcare access:: alcohol use Patient has the following chronic illnesses:: hypertension, diabetes, hyperlipidemia, liver cirrhosis ~ 1 year ago How is presenting disease/condition affected by chronic disease/condition?: exacerbated by Evaluation data The following diagnostics were reviewed and interpreted by me:: lab results, radiology exam(s) and EKG tracing(s) (05:52 AM. NSR, rate 75, normal axis, no ectopy, no acute ischemia ) Lab and/or radiology exams considered but not ordered:: None Interpretation Summary: As noted above Medications / Prescriptions Medications or Prescriptions considered but not ordered:: None Medication administrations:: Medication Administration History Discontinued Medications Acetaminophen (Acetaminophen 500 Mg Tablet) 1,000 mg PO X1 ONE Stop: 05/18/25 08:21 Last Admin: 05/18/25 08:28 Dose: Not Given Documented By: JONI Non-Admin Reason: Cancelled by Provider Al Hydrox/Mg Hydrox/Simethicone (Mg Hyd/Al Hyd/Elizabeth (Maalox Reg) Susp 30 Ml Udc) 30 ml PO X1 ONE Stop: 05/18/25 06:57 Last Admin: 05/18/25 07:48 Dose: 30 ml Documented By: JONI Famotidine (Famotidine Inj 10 Mg/Ml Vial 2 Ml) 20 mg IVP X1 ONE Stop: 05/18/25 06:57 Last Admin: 05/18/25 07:33 Dose: 20 mg Documented By: JONI Sodium Chloride (Ns) 1,000 mls @ 999 mls/hr IV .Q1H1M ONE Stop: 05/18/25 07:58 Last Infusion: 05/18/25 08:49 Dose: Infused Documented By: Admin: 05/18/25 07:34 Dose: 999 mls/hr Documented By: JONI Magnesium Sulfate/Dextrose (Magnesium Sulfate Ivpb) 1 gm in 100 mls @ 100 mls/hr IV X1 ONE Stop: 05/18/25 07:58 Last Infusion: 05/18/25 08:49 Dose: Infused Documented By: Admin: 05/18/25 07:34 Dose: 100 mls/hr Documented By: JONI Ibuprofen (Ibuprofen Tab 600 Mg Tablet) 600 mg PO X1 ONE Stop: 05/18/25 08:30 Last Admin: 05/18/25 08:36 Dose: 600 mg Documented By: JONI Lorazepam (Lorazepam 0.5 Mg Tablet) 0.5 mg PO X1 ONE Stop: 05/18/25 08:59 Last Admin: 05/18/25 09:22 Dose: 0.5 mg Documented By: JONI Magnesium Oxide (Magnesium Oxide 400 Mg Tablet) 400 mg PO X1 ONE Stop: 05/18/25 08:53 Ondansetron HCl (Ondansetron Inj 2 Mg/Ml Inj 2 Ml) 4 mg IVP X1 ONE; Protocol Stop: 05/18/25 06:59 Last Admin: 05/18/25 07:33 Dose: 4 mg Documented By: JONI Potassium Chloride (Potassium Chloride 20 Meq Tabcr) 40 meq PO X1 ONE Stop: 05/18/25 07:00 Last Admin: 05/18/25 07:48 Dose: 40 meq Documented By: JONI See above Consultations Consultation(s) initiated? (list below): No Diagnosis Chest Pain Differential Diagnosis: atypical chest pain, st elevation myocardial infarction, costochondritis, chest pain, biliary colic and other (liver cirrhosis ) Most likely diagnosis given after review of the tests above:: Hypomagnesemia Alcohol abuse Abdominal pain Chest pain Headache Admission Indicated Admission indicated?: not indicated Admission Request Was there a request for admission?: No Disposition Plan Disposition Plan: Discharge Discharge Attestation Discharge Attestation: The patient and all family members were given an opportunity to ask questions and understood the discharge instructions. Discharge instructions specifically effects, indications for sooner follow up or return to the emergency department, and the expected course of current diagnosis. Patient condition: Stable Discharge Plan Plan Patient Disposition: HOME (Self Care) Discharge Disposition comment: Stable for discharge home Patient condition on transfer: Stable Prescriptions/Referrals Prescriptions/Med Rec: New alum-mag hydroxide-simeth [Maalox Advanced] 200-200-20 mg/5 mL suspension 10 ml PO QID PRN (Reason: dyspepsia) Qty: 3000 0RF Rx Instructions: administer between meals and at bedtime famotidine [Pepcid] 20 mg tablet 20 mg PO QDAY 10 Days Qty: 10 0RF magnesium oxide 400 mg magnesium capsule 400 mg PO QDAY 5 Days Qty: 5 0RF No Action sucralfate 100 mg/mL suspension 10 ml PO BID Qty: 200 0RF acetaminophen 500 mg capsule 1,000 mg PO Q6H PRN (Reason: fever or pain) Qty: 30 0RF ibuprofen 800 mg tablet 800 mg PO TID PRN (Reason: pain) Qty: 30 0RF lorazepam [Ativan] 1 mg tablet 1 mg PO BID PRN (Reason: anxiety) Qty: 20 0RF lisinopril 20 mg tablet 20 mg PO DAILY Patient Comments: take 1 tablet by mouth once daily chlordiazepoxide HCl 25 mg capsule 25 mg PO BID PRN (Reason: alcohol withdrawal) Qty: 14 0RF pantoprazole 40 mg tablet,delayed release (DR/EC) 40 mg PO QDAY Qty: 30 0RF ondansetron 4 mg tablet,disintegrating 4 mg PO Q8H PRN (Reason: nausea and vomiting) Qty: 30 0RF ibuprofen 600 mg tablet 600 mg PO Q6H Qty: 30 0RF pantoprazole [Protonix] 40 mg tablet,delayed release (DR/EC) 40 mg PO QDAY Qty: 14 0RF lactulose 20 gram/30 mL solution 20 g PO BID PRN (Reason: constipation) Qty: 1200 0RF dicyclomine 20 mg tablet 20 mg PO Q6HR PRN (Reason: abdominal pain) Qty: 30 0RF dextromethorphan-guaifenesin [Mucinex DM] 60-1,200 mg tablet extended release 12 hr 1 tab PO Q12H PRN (Reason: congestion/cough) Qty: 20 0RF fluticasone propionate [Flonase Allergy Relief] 50 mcg/actuation spray,suspension 2 spray intranasal QDAY Qty: 16 0RF Rx Instructions: administer into each nostril ibuprofen 600 mg tablet 600 mg PO Q6H PRN (Reason: pain) Qty: 30 0RF ondansetron 4 mg tablet,disintegrating 4 mg PO Q8H PRN (Reason: nausea and vomiting) Qty: 30 0RF acetaminophen 500 mg capsule 500 mg PO Q6H PRN (Reason: pain) Qty: 30 0RF Referrals: [facility] [Provider Group] - In 1 week Brittany Ortiz MD [Physician] - In 1 week Problem List Clinical Impression: Hypomagnesemia, Alcohol abuse, Abdominal pain, Chest pain, Headache Patient/Caregiver Discharge Instructions Discharge Activity: activity as tolerated Education Materials: Alcoholism: Getting Help, Addiction Recovery Counseling, Discharge Instructions for ..., ED Chest Pain, Noncardiac, ED Pain, Acute, Uncertain Cause Additional Instructions: There are 3 medications waiting for you at the pharmacy. One of them is called Pepcid. He should take this once per day. Another 1 is called Maalox or aluminum/magnesium hydroxide. This is a liquid that will hopefully calm your stomach and coat your esophagus and get rid of any reflux type symptoms. The last medication is magnesium oxide. Your magnesium level was a little low today. Just take 1 tab at that every day for 5 days in a row. You should follow-up with your primary care doctor or in the [facility] within the next several days. Also you should follow-up with Dr. Ortiz. Have given you Dr. Ortiz's contact information. He is our [employer] found[employer] laborer on-call for the ER. If you truly have cirrhosis you should see Dr. Ortiz and speak to him about your options. As always if you feel like you are worsening in any way please return to the ER. Otherwise you should follow-up with your primary care doctor within the next several days. Print Language: Kenyan Stand Alone Forms: [employer] Award Info., Patient Portal Info Letter
[2025-05-18 06:57] LABS: Alanine Aminotransferase 29 U/L (10-49); Albumin, Serum 4.1 gm/dL (3.5-5.0); Albumin/Globulin Ratio 1.6 (1.2-2.2); Alcohol, Blood Medical < 3.0 mg/dL (0-10.0); Alkaline Phosphatase 57 U/L (46-116); Anion Gap 11 (7-16); Aspartate Amino Transferase 28 U/L (0-34); BUN/Creatinine Ratio 13 Ratio (12-20); Bilirubin,Total 1.0 mg/dL (0.3-1.2); Blood Urea Nitrogen 12 mg/dL (9-23); Calcium 9.3 mg/dL (8.3-10.6); Calcium (Corrected) 9.3 mg/dL (8.5-10.1); Carbon Dioxide 25.5 mMol/L (20.0-31.0); Chloride 102 mMol/L (98-107); Creatinine (Component) 0.9 mg/dL (0.6-1.3); Estimated Creatinine Clearance 124.0 mL/min (>60); Globulin 2.6 gm/dL (2.3-3.5); Glucose 100 mg/dL (74-106); Magnesium 1.4 mg/dL (1.6-2.6); Osmolality,Calculated 275 (275-295); Potassium 3.5 mMol/L (3.4-5.1); Sodium 138 mMol/L (136-145); Total Protein 6.7 gm/dL (5.7-8.2); Troponin I < 0.020 ng/mL (0.0-0.045); eGFR > 60 See Note
[2025-05-18 07:10] LABS: Base Excess, Venous 1 (-3-3); O2 Saturation, Venous 97 % (96-97); PCO2, Venous 46 mmHg (36-56); PO2, Venous 81 mmHg (15-58); pH, Venous 7.38 (7.33-7.66)
[2025-05-18 07:20] LABS: INR 1.0 (0.9-1.3); Prothrombin Time 11.3 Seconds (9.0-12.2)
[2025-05-18 07:29] LABS: Beta Hydroxybutyrate 0.0 mmol/L (<0.6)
[2025-05-18] MEDS: ONDANSETRON INJ 2 MG/ML INJ 2 ML 4 MG IVP (07:33)
[2025-05-18] MEDS: FAMOTIDINE INJ 10 MG/ML VIAL 2 ML 20 MG IVP (07:33)
[2025-05-18] MEDS: SODIUM CHLORIDE 0.9% 1000 ML 1,000 ML 999 ML IV (07:34)
[2025-05-18 07:45] VITALS: BP 163/101; PULSE 81; RESP 20; TEMP 36.4; O2SAT 94
[2025-05-18] MEDS: MG HYD/AL HYD/SIME (Maalox Reg) SUSP 30 ML UDC PO (07:48)
[2025-05-18] MEDS: IBUPROFEN TAB 600 MG TABLET PO (08:36)
[2025-05-18 09:07] LABS: Basophils # (Auto) 0.1 Thou/mm3 (0.0-0.2); Basophils % (Auto) 1 % (0-2.5); Eosinophils # (Auto) 0.5 Thou/mm3 (0.0-0.5); Eosinophils % (Auto) 4 % (0-10); Hematocrit 41.0 % (41.0-53.0); Hemoglobin 15.5 g/dL (13.5-16.0); Immature Granulocytes Auto 0.03 Thou/mm3 (0.00-0.00); Lymphocytes # (Auto) 3.8 Thou/mm3 (1.0-4.8); Lymphocytes % (Auto) 33 % (10-50); Mean Corpuscular HGB Conc 37.8 g/dl (31.0-37.0); Mean Corpuscular Hemoglobin 32.0 pg (25.0-35.0); Mean Corpuscular Volume 85 fL (80-100); Monocytes # (Auto) 0.9 Thou/mm3 (0.0-0.8); Monocytes % (Auto) 8 % (0-12); Neutrophils # (Auto) 6.3 Thou/mm3 (1.8-7.7); Neutrophils % (Auto) 54 % (37-80); Nucleated Red Blood Cell # 0.00 Thou/mm3 (0.00-0.00); Nucleated Red Blood Cell % 0 /100 WBC (0); Platelet Count 308 Thou/mm3 (140-440); RDW Standard Deviation 35.7 fL (35.1-43.9); Red Blood Count 4.84 Miln/mm3 (4.50-5.90); White Blood Count 11.7 Thou/mm3 (3.8-10.6)
== END 2025-05-18 09:45 | disposition home or self-care (01) ==
PROVIDERS: Emergency Provider Emergency Medicine
DX: R07.89 Other chest pain (principal); E83.42 Hypomagnesemia; R51.9 Headache, unspecified; F10.10 Alcohol abuse, uncomplicated; R10.9 Unspecified abdominal pain
CPT/HCPCS: 36415; 80053; 80307; 80320; 81001; 82010; 82803; 83735; 84484; 85025; 85610; 93005; 96365; 96375; 99283; J2405; J3475; J3490; J7030; A9270; G0480

== ENCOUNTER 2025-06-06 17:05 | Emergency (ER) | payer MEDICAID, SELFPAY ==
[2025-06-06 17:11] VITALS: BP 147/92; PULSE 82; RESP 18; TEMP 36.8; O2SAT 98
[2025-06-06 17:20] VITALS: PULSE 119; O2SAT 98; BMI 28.1
[2025-06-06] MEDS: RINGERS LACTATED 1000 ML 1,000 ML 999 ML IV (17:25)
--- NOTE | 2025-06-06 17:31 | XR_ITS ---
Examination: AP chest single view TECHNIQUE: AP portable upright chest single view Date and time: June 06, 2025, 1748 hours INDICATIONS: Chest pain today FINDINGS: Normal heart size. Lungs are clear. The osseous structures are intact. IMPRESSION: No active disease.
--- NOTE | 2025-06-06 17:34 | PD.EDCHEST ---
ED Chest Pain RME/HPI General Chief Complaint: Chest Pain Stated Complaint: CHEST PAIN Time Seen by Provider: 06/06/25 17:16 Arrival date/time: 06/06/25 17:05 RME / HPI RME / HPI narrative: 29-year-old male patient with significant history of chronic alcoholism, has been having alcohol binges for the last 5 days, last alcohol intake was yesterday, came in for evaluation regarding left-sided chest pain. Onset of symptoms about 1 to 2 hours prior to ER visit as left-sided chest pain, described as sharp pain, severity moderate. Patient denies any cough denies any vomiting denies any anxiety-like symptoms. Denies any tremors. Denies any other complaints. Patient was given 2 nitro sublingual by EMS on the way to the emergency room. Related Data Home Medications ?Medication ?Instructions ?Recorded ?Confirmed lisinopril 20 mg tablet 20 mg PO DAILY 05/18/25 05/18/25 Previous Rx's ?Medication ?Instructions ?Recorded sucralfate 100 mg/mL oral 10 ml PO BID #200 mL 01/16/23 suspension chlordiazepoxide HCl 25 mg capsule 25 mg PO BID PRN alcohol 10/02/23 withdrawal #14 caps ondansetron 4 mg disintegrating 4 mg PO Q8H PRN nausea and 10/02/23 tablet vomiting #30 tabs pantoprazole 40 mg tablet,delayed 40 mg PO QDAY #30 tabs 10/02/23 release ibuprofen 600 mg tablet 600 mg PO Q6H #30 tabs 10/24/23 acetaminophen 500 mg capsule 1,000 mg (2 x 500 mg) PO Q6H PRN 05/09/24 fever or pain #30 caps ibuprofen 800 mg tablet 800 mg PO TID PRN pain #30 tabs 05/09/24 lorazepam 1 mg tablet (Ativan) 1 mg PO BID PRN anxiety #20 tabs 05/09/24 pantoprazole 40 mg tablet,delayed 40 mg PO QDAY #14 tabs 07/12/24 release (Protonix) dextromethorphan-guaifenesin ER 60 1 tab PO Q12H PRN congestion/cough 08/19/24 mg-1,200 mg tab,extend #20 tabs release,12hr (Mucinex DM) dicyclomine 20 mg tablet 20 mg PO Q6HR PRN abdominal pain 08/19/24 #30 tabs fluticasone propionate 50 2 spray intranasal QDAY #16 grams 08/19/24 mcg/actuation nasal spray,suspension (Flonase Allergy Relief) ibuprofen 600 mg tablet 600 mg PO Q6H PRN pain #30 tabs 08/19/24 lactulose 20 gram/30 mL oral 20 g (30 mL) PO BID PRN 08/19/24 solution constipation #1,200 mL ondansetron 4 mg disintegrating 4 mg PO Q8H PRN nausea and 10/04/24 tablet vomiting #30 tabs acetaminophen 500 mg capsule 500 mg PO Q6H PRN pain #30 caps 12/04/24 aluminum-mag hydroxide-simethicone 10 ml PO QID PRN dyspepsia #3,000 05/18/25 200 mg-200 mg-20 mg/5 mL oral susp mL (Maalox Advanced) chlordiazepoxide HCl 25 mg capsule 25 mg PO Q6H PRN alcohol 06/06/25 withdrawal #20 caps famotidine 40 mg tablet (Pepcid) 40 mg PO BID #14 tabs 06/06/25 Allergies Allergy/AdvReac Type Severity Reaction Status Date / Time grass pollen Allergy Redness of Verified 05/18/25 05:25 Skin SEEDS Allergy Mild Abdominal Uncoded 05/18/25 05:25 Pain Review of Systems Review of Systems Narrative Review of Systems: Review of system reviewed and within normal limits except mentioned in HPI ED Exam Narrative Physical exam: VITAL SIGNS: Reviewed. GENERAL APPEARANCE: Alert and interactive, follows commands, no acute distress, HEAD AND FACE: Non-traumatic. ENT: PERRL, pink conjunctivitis, eyelid no trauma, Mucous membrane moist. NECK: Supple, nontender, no nuchal rigidity. CHEST: Left chest tenderness, no crepitus, no paradoxical movement, no retractions. LUNGS: Clear, well ventilated, symmetric, no rales, no wheezing, no ronchi, no stridor, good breath sounds bilaterally. HEART: Regular rate, regular rhythm, no murmur, no gallops. ABDOMEN: Soft, positive bowel sounds, nondistended, no guarding, nontender, no rebound, no masses, RECTAL: Deferred. GENITAL: Deferred. NEUROLOGICAL: Gross motor function intact sensory function intact, Appropriate for age. MUSCULOSKELETAL: low back nontender, full range of motion. EXTREMITIES: Nontender, full range of motion. SKIN: Color pink, dry, no rash, no lacerations, no abrasions, no contusions. LYMPHATICS: Deferred. Course Quality Measures none Orders Category Date Time Status EKG (ED ONLY) *Do not use* NOW Care 06/06/25 17:33 Completed EKG (ED Only) Stat Exams 06/06/25 17:33 Ordered XR chest 1V Stat Exams 06/06/25 17:31 Completed Alcohol, Blood Medical Stat Lab 06/06/25 17:37 Completed B-Type Natriuretic Peptide Stat Lab 06/06/25 17:37 Completed CBC Stat Lab 06/06/25 17:37 Completed Comprehensive Metabolic Panel Stat Lab 06/06/25 17:37 Completed Drug Screen,Urine Stat Lab 06/06/25 19:30 Completed Partial Thromboplastin Time Stat Lab 06/06/25 17:37 Completed Troponin I Stat Lab 06/06/25 17:37 Completed Urinalysis, C/S if Indicated Stat Lab 06/06/25 19:30 Completed Diazepam [Valium] Med 06/06/25 21:08 Discontinued 5 mg PO X1 ONE Morphine Inj Med 06/06/25 17:31 Discontinued 4 mg IVP X1 ONE Ondansetron Odt [Zofran Odt] Med 06/06/25 17:31 Discontinued 4 mg PO X1 ONE Ringers Lactated 1000 ml [Lactated Ringers] 1,000 ml Med 06/06/25 17:25 Discontinued IV 999 mls/hr chlordiazePOXIDE HCl [Librium] Med 06/06/25 21:08 Discontinued 25 mg PO X1 ONE mg Hyd/Al Hyd/Elizabeth Susp [Maalox Susp] Med 06/06/25 17:31 Discontinued 30 ml PO X1 ONE Vital Signs Vital signs: Vital Signs Temperature 98.2 F 06/06/25 17:11 Pulse Rate 82 06/06/25 17:11 Respiratory Rate 18 06/06/25 17:11 Blood Pressure 147/92 H 06/06/25 17:11 Pulse Oximetry (%) 98 06/06/25 17:11 Oxygen Delivery Method Room Air 06/06/25 17:11 Chest Pain MDM Narrative MDM Narrative:: 29-year-old male patient with significant history of chronic alcoholism, has been having alcohol binges for the last 5 days, last alcohol intake was yesterday, came in for evaluation regarding left-sided chest pain. Onset of symptoms about 1 to 2 hours prior to ER visit as left-sided chest pain, described as sharp pain, severity moderate. Patient denies any cough denies any vomiting denies any anxiety-like symptoms. Denies any tremors. Denies any other complaints. Patient was given 2 nitro sublingual by EMS on the way to the emergency room. Patient's workup today all came back with no leukocytosis, CMP unremarkable, troponin is normal urinalysis within normal limits alcohol level was noted to be 37.8 chest x-ray also came back normal. EKG showed sinus rhythm, ventricular rate of 79 bpm, no ST segment elevation depression noted. Patient was given IV fluids, Librium and Valium with significant improvement of symptoms. Patient is not showing any sign of alcohol withdrawal prior to discharge Patient told me that he is going to stop drinking alcohol.?I prescribed him Librium. Patient data External records reviewed:: None Clinical information provided by:: patient Social determinants that could affect healthcare access:: alcohol use Patient has the following chronic illnesses:: Chronic alcoholism How is presenting disease/condition affected by chronic disease/condition?: exacerbated by Evaluation data The following diagnostics were reviewed and interpreted by me:: lab results, radiology exam(s) and EKG tracing(s) Lab and/or radiology exams considered but not ordered:: None Interpretation Summary: See results MDM Medications / Prescriptions Medications or Prescriptions considered but not ordered:: None Medication administrations:: Medication Administration History Discontinued Medications Al Hydrox/Mg Hydrox/Simethicone (Mg Hyd/Al Hyd/Elizabeth (Maalox Reg) Susp 30 Ml Udc) 30 ml PO X1 ONE Stop: 06/06/25 17:32 Last Admin: 06/06/25 19:28 Dose: 30 ml Documented By: LUCA Chlordiazepoxide HCl (Chlordiazepoxide Hcl 25 Mg Capsule) 25 mg PO X1 ONE Stop: 06/06/25 21:09 Last Admin: 06/06/25 21:18 Dose: 25 mg Documented By: LUCA Diazepam (Diazepam 5 Mg Tablet) 5 mg PO X1 ONE Stop: 06/06/25 21:09 Last Admin: 06/06/25 21:18 Dose: 5 mg Documented By: LUCA Lactated Ringer's (Lactated Ringers) 1,000 mls @ 999 mls/hr IV .Q1H1M ONE Stop: 06/06/25 18:25 Last Infusion: 06/06/25 18:30 Dose: Infused Documented By: Admin: 06/06/25 17:25 Dose: 999 mls/hr Documented By: LELAND Morphine Sulfate (Morphine Sulf Inj 10 Mg/Ml Vial) 4 mg IVP X1 ONE Stop: 06/06/25 17:32 Last Admin: 06/06/25 19:28 Dose: 4 mg Documented By: LUCA Ondansetron HCl (Ondansetron Odt 4 Mg Tabrap) 4 mg PO X1 ONE; Protocol Stop: 06/06/25 17:32 Last Admin: 06/06/25 19:29 Dose: 4 mg Documented By: LUCA Morphine Zofran IV fluids, Valium and Librium. Was also given Maalox Consultations Consultation(s) initiated? (list below): No Diagnosis Chest Pain Differential Diagnosis: atypical chest pain and chest pain Most likely diagnosis given after review of the tests above:: Chronic alcoholism, chest pain Admission Indicated Admission indicated?: not indicated Admission Request Was there a request for admission?: No Disposition Plan Disposition Plan: Discharge Discharge Attestation Discharge Attestation: The patient and all family members were given an opportunity to ask questions and understood the discharge instructions. Discharge instructions specifically effects, indications for sooner follow up or return to the emergency department, and the expected course of current diagnosis. Patient condition: Stable Discharge Plan Plan Patient Disposition: HOME (Self Care) Discharge Disposition comment: Stable Prescriptions/Referrals Prescriptions/Med Rec: New chlordiazepoxide HCl 25 mg capsule 25 mg PO Q6H PRN (Reason: alcohol withdrawal) Qty: 20 0RF famotidine [Pepcid] 40 mg tablet 40 mg PO BID Qty: 14 0RF No Action sucralfate 100 mg/mL suspension 10 ml PO BID Qty: 200 0RF acetaminophen 500 mg capsule 1,000 mg PO Q6H PRN (Reason: fever or pain) Qty: 30 0RF ibuprofen 800 mg tablet 800 mg PO TID PRN (Reason: pain) Qty: 30 0RF lorazepam [Ativan] 1 mg tablet 1 mg PO BID PRN (Reason: anxiety) Qty: 20 0RF lisinopril 20 mg tablet 20 mg PO DAILY Patient Comments: take 1 tablet by mouth once daily alum-mag hydroxide-simeth [Maalox Advanced] 200-200-20 mg/5 mL suspension 10 ml PO QID PRN (Reason: dyspepsia) Qty: 3000 0RF Rx Instructions: administer between meals and at bedtime chlordiazepoxide HCl 25 mg capsule 25 mg PO BID PRN (Reason: alcohol withdrawal) Qty: 14 0RF pantoprazole 40 mg tablet,delayed release (DR/EC) 40 mg PO QDAY Qty: 30 0RF ondansetron 4 mg tablet,disintegrating 4 mg PO Q8H PRN (Reason: nausea and vomiting) Qty: 30 0RF ibuprofen 600 mg tablet 600 mg PO Q6H Qty: 30 0RF pantoprazole [Protonix] 40 mg tablet,delayed release (DR/EC) 40 mg PO QDAY Qty: 14 0RF lactulose 20 gram/30 mL solution 20 g PO BID PRN (Reason: constipation) Qty: 1200 0RF dicyclomine 20 mg tablet 20 mg PO Q6HR PRN (Reason: abdominal pain) Qty: 30 0RF dextromethorphan-guaifenesin [Mucinex DM] 60-1,200 mg tablet extended release 12 hr 1 tab PO Q12H PRN (Reason: congestion/cough) Qty: 20 0RF fluticasone propionate [Flonase Allergy Relief] 50 mcg/actuation spray,suspension 2 spray intranasal QDAY Qty: 16 0RF Rx Instructions: administer into each nostril ibuprofen 600 mg tablet 600 mg PO Q6H PRN (Reason: pain) Qty: 30 0RF ondansetron 4 mg tablet,disintegrating 4 mg PO Q8H PRN (Reason: nausea and vomiting) Qty: 30 0RF acetaminophen 500 mg capsule 500 mg PO Q6H PRN (Reason: pain) Qty: 30 0RF Referrals: Kash Ferris MD [Primary Care Provider] - In 1 week Problem List Clinical Impression: Alcohol abuse, Chest pain Patient/Caregiver Discharge Instructions Discharge Activity: activity as tolerated Education Materials: The Impact of Alcoholism, ED Chest Pain, Noncardiac Additional Instructions: Thank you for the opportunity for serving you today. You are stable for discharged . You are advised to: Follow-up with your PCP in 1 to 2 days Return to ED for worsening of symptoms Increase oral fluids Take medication as prescribed Please stop abusing alcohol. Print Language: Mosotho Stand Alone Forms: Anh Award Info., Patient Portal Info Letter
[2025-06-06 17:56] LABS: Basophils # (Auto) 0.1 Thou/mm3 (0.0-0.2); Basophils % (Auto) 1 % (0-2.5); Eosinophils # (Auto) 0.1 Thou/mm3 (0.0-0.5); Eosinophils % (Auto) 1 % (0-10); Hematocrit 40.4 % (41.0-53.0); Hemoglobin 14.8 g/dL (13.5-16.0); Immature Granulocytes Auto 0.05 Thou/mm3 (0.00-0.00); Lymphocytes # (Auto) 2.6 Thou/mm3 (1.0-4.8); Lymphocytes % (Auto) 40 % (10-50); Mean Corpuscular HGB Conc 36.6 g/dl (31.0-37.0); Mean Corpuscular Hemoglobin 31.8 pg (25.0-35.0); Mean Corpuscular Volume 87 fL (80-100); Monocytes # (Auto) 0.5 Thou/mm3 (0.0-0.8); Monocytes % (Auto) 8 % (0-12); Neutrophils # (Auto) 3.1 Thou/mm3 (1.8-7.7); Neutrophils % (Auto) 49 % (37-80); Nucleated Red Blood Cell # 0.00 Thou/mm3 (0.00-0.00); Nucleated Red Blood Cell % 0 /100 WBC (0); Platelet Count 293 Thou/mm3 (140-440); RDW Standard Deviation 36.6 fL (35.1-43.9); Red Blood Count 4.65 Miln/mm3 (4.50-5.90); White Blood Count 6.4 Thou/mm3 (3.8-10.6)
[2025-06-06 18:11] LABS: Partial Thromboplastin Time 23.4 Seconds (22.0-36.0)
[2025-06-06 18:21] LABS: B-Type Natriuretic Peptide 28 pg/mL (0-100)
[2025-06-06 18:25] LABS: Alanine Aminotransferase 22 U/L (10-49); Albumin, Serum 4.4 gm/dL (3.5-5.0); Albumin/Globulin Ratio 1.8 (1.2-2.2); Alcohol, Blood Medical 37.8 mg/dL (0-10.0); Alkaline Phosphatase 56 U/L (46-116); Anion Gap 11 (7-16); Aspartate Amino Transferase 25 U/L (0-34); BUN/Creatinine Ratio 11 Ratio (12-20); Bilirubin,Total 0.6 mg/dL (0.3-1.2); Blood Urea Nitrogen 10 mg/dL (9-23); Calcium 9.5 mg/dL (8.3-10.6); Calcium (Corrected) 9.5 mg/dL (8.5-10.1); Carbon Dioxide 25.7 mMol/L (20.0-31.0); Chloride 102 mMol/L (98-107); Creatinine (Component) 0.9 mg/dL (0.6-1.3); Globulin 2.4 gm/dL (2.3-3.5); Glucose 104 mg/dL (74-106); Osmolality,Calculated 276 (275-295); Potassium 3.9 mMol/L (3.4-5.1); Sodium 139 mMol/L (136-145); Total Protein 6.8 gm/dL (5.7-8.2); Troponin I < 0.020 ng/mL (0.0-0.045); eGFR > 60 See Note
[2025-06-06] MEDS: MORPHINE SULF INJ 10 MG/ML VIAL 4 MG IVP (19:28)
[2025-06-06] MEDS: MG HYD/AL HYD/SIME (Maalox Reg) SUSP 30 ML UDC PO (19:28)
[2025-06-06] MEDS: ONDANSETRON ODT 4 MG TABRAP PO (19:29)
[2025-06-06 19:34] LABS: Collection Type, Urine Clean Catch; Squamous Epithelial Cell,Urine 0 /hpf (0-5)
[2025-06-06 19:46] LABS: Amorphous Crystals,Urine Present (Absent); Bilirubin,Urine Negative (Negative); Blood,Urine Negative (Negative); Clarity,Urine Clear (Clear/Hazy); Color,Urine Yellow (Lt Yel-Yel); Culture Indicated,Urine Not Indicated; Glucose, Urine Negative (Negative); Granular Casts,Urine < 1 /hpf (0-1); Ketones,Urine Negative (Negative); Leukocyte Esterase,Urine Negative (Negative); Nitrite,Urine Negative (Negative); PH,Urine 6.5 (5.0-7.0); Protein,Urine 1+ (Neg - Trace); RBC,Urine 12 /hpf (0-3); Specific Gravity,Urine 1.027 (1.001-1.035); Urobilinogen,Urine Negative mg/dL (0.0-1.0); WBC,Urine 2 /hpf (0-5)
[2025-06-06 20:47] LABS: Amphetamine/Methamp Scrn,U Negative (Negative); Barbiturate Screen,Urine Negative (Negative); Benzodiazepines Screen,Urine Negative (Negative); Benzoylecgonine Screen, Ur Negative (Negative); Fentanyl Screen,Urine Negative (Negative); Opiate Screen,Urine Negative (Negative); THC Screen,Urine Negative (Negative)
[2025-06-06 21:00] VITALS: BP 138/94; PULSE 88; RESP 17; O2SAT 95
--- NOTE | 2025-06-06 21:10 | PC.NURSE ---
Provider at bedside for re eval
[2025-06-06] MEDS: DIAZEPAM 5 MG TABLET PO (21:18)
--- NOTE | 2025-06-06 21:20 | PC.NURSE ---
Family present for discharge and provide ride home-patient education complete on medications given, voices understanding and denies any questions
[2025-06-06 21:56] VITALS: BP 134/90; PULSE 86; RESP 17; TEMP 37.1; O2SAT 97
== END 2025-06-06 21:59 | disposition home or self-care (01) ==
PROVIDERS: Nurse Practitioner Family; Emergency Provider Emergency Medicine; PCP Family Medicine
DX: F10.20 Alcohol dependence, uncomplicated (principal); R07.89 Other chest pain; R94.31 Abnormal electrocardiogram [ECG] [EKG]; Y90.1 Blood alcohol level of 20-39 mg/100 ml
CPT/HCPCS: 36415; 71045; 80053; 80307; 80320; 81001; 83880; 84484; 85025; 85730; 93005; 96361; 96374; 99283; J2270; J7120; Q0162; A9270; G0480